=== PATIENT | female | born 1975 | race African-American/Black ===

== ENCOUNTER 2017-06-07 10:58 | Emergency (ER) | payer OTHER ==
[2017-06-07 11:09] VITALS: TEMP 98.3; BMI 33.8
[2017-06-07] MEDS ORDERED: ACETAMINOPHEN 1000 MG/100 ML VIAL (NON FORMULARY) IVPB ONE (12:39)
[2017-06-07] MEDS ORDERED: SODIUM CHLORIDE 1,000 ML IV STA ×2 (12:39→14:58)
--- NOTE | 2017-06-07 12:39 | PDOC ---
History of Present Illness - General Chief Complaint: Blood Sugar Problem Stated Complaint: BLOOD SUGAR PROBLEM, HEADACHE History Source: Patient Exam Limitations: No Limitations - History of Present Illness Initial Comments: 06/07/17 14:46 This 42-year-old female resents to the emergency room with complaints of elevated glucose levels that she measured at home as well as a headache. She is here with her 3 small children who are eating carbohydrates while waiting in the exam room. Patient appears well except that she is frustrated with her children. I explained that she should not be eating at this time. Labs have been obtained and she is noted to have an elevated glucose of over 300. She does take metformin and took it this morning. Past medical history is non-insulin diabetic on metformin Past History - Past Medical History Allergies/Adverse Reactions: Allergies Allergy/AdvReac Type Severity Reaction Status Date / Time latex Allergy Severe Swelling Verified 06/07/17 11:06 coconut Allergy Severe Hives Uncoded 06/07/17 11:06 Home Medications: Ambulatory Orders Humalog 16 units SQ AM 06/24/13 Humalog 18 units SQ HS 06/24/13 Humulin R - 14 units SQ HS 06/24/13 Humulin R - 38 units SQ AM 06/24/13 Azithromycin [Zithromax Z-KINGS (5 DAYS) -] 250 mg PO ASDIR #6 tablet 05/19/15 Anemia: No Asthma: No Cancer: No Cardiac Disorders: No CVA: No COPD: No CHF: No DVT: No Dementia: No Diabetes: Yes GI Disorders: No Disorders: No HTN: No Hypercholesterolemia: No Liver Disease: No Seizures: No Thyroid Disease: No - Surgical History Abdominal Surgery: Yes (2 abortions) Appendectomy: No Cardiac Surgery: No Cholecystectomy: No Lung Surgery: No Neurologic Surgery: No Orthopedic Surgery: No - Reproductive History (#): 6 Para: 1 Therapeutic (s) & number: Yes (2) Spontaneous : 1 - Suicide/Smoking/Psychosocial Hx Smoking Status: No Smoking History: Never smoked Have you smoked in the past 12 months: No Number of Cigarettes Smoked Daily: 0 Information on smoking cessation initiated: No 'Breaking Loose' booklet given: 04/06/13 Hx Alcohol Use: No Drug/Substance Use Hx: No Substance Use Type: None Hx Substance Use Treatment: No Review of Systems - Review of Systems Able to Perform ROS?: Yes Comments:: 06/07/17 14:47 General statement: Complaining of a headache and elevated glucoses Hematology: neg history of bleeding/blood thinners Skin: Neg for lesions, rash, bruising. HEENT: Neg symptoms Respiratory: Neg SOB or difficulty in breathing Cardiac: Neg chest pain GI: Neg pain, n/v : Neg problems on voiding MS: Neg for joint pain/stiffness, no edema Neuro: Neg for LOC, weakness, Endocrine: Neg for excess thirst/hunger, cold/heat intolerance, excess sweating positive with elevated glucose levels Allergies: + for allergies *Physical Exam - Vital Signs Last Vital Signs Temp Pulse Resp BP Pulse Ox 98.3 F 100 H 18 105/72 100 06/07/17 11:06 06/07/17 11:06 06/07/17 11:06 06/07/17 11:06 06/07/17 11:06 - Physical Exam Comments: 06/07/17 14:48 General Appearance: This well appearing 42-year-old female V/S: hemodynamically stable, afebrile Skin: WNL of pt's skin color, no signs of pallor, mottling, cyanosis Head:symmetrical Eyes: EOM's intact, PERRLA Ears: denies pain Nose: patent Throat: lips, teeth, gums, tongue, buccal mucos pink and moist Lungs: Chest symmetry equal. Cap refill <3 seconds. Lung sounds clear Cardiac: PMI at R 4MCL space, pos S1 and S2, regular rate. Abdomen: Soft, round, nontender : Not observed Muscularskeletal: Gait steady, ambulated in to ER, no edema +PMS Neuro: AAOx3, cognitively intact, speech clear and appropriate. ED Treatment Course - LABORATORY CBC & Chemistry Diagram: 06/07/17 13:15 06/07/17 13:15 Medical Decision Making - Medical Decision Making 06/07/17 14:43 Patient initially seen and examined. She is in the room with her 3 small kids eating multiple carbs although she states she is not eating them. She states that she's been having some headaches and Tylenol was given for this and she also says her glucoses have been high as she noted over the last 3-4 days. She was given some IV fluids. She takes metformin. She is noted to have a very mild positive acetone however her anion gap is negative. I've explained to her that she needs to drink a ton water as well as to avoid carbohydrates and glucose to keep her glucose down. She should schedule an appointment at [facility] today for her follow-up. Her repeat glucose is *DC/Admit/Observation/Transfer Diagnosis at time of Disposition: Hyperglycemia - Discharge Dispostion Disposition: HOME Condition at time of disposition: Good Admit: No - Referrals Referrals: Keyana Pike MD [Primary Care Provider] - - Patient Instructions Printed Discharge Instructions: DI for Hyperglycemia -- Adult Additional Instructions: Discharge instructions 1. Please follow up with your primary physician within the next few days and explain that you have been seen here in the Emergency Room. As you need to have a complete workup for your glucoses being so elevated. You need to call today to schedule that appointment. 2. If you experience any worsening of symptoms, please return to the ER 3. Walk daily 4. Drink plenty of water, stay away from carbohydrates and sugars. Take your medications daily as prescribed. - Post Discharge Activity Forms/Work/School Notes: Back to Work
[2017-06-07] MEDS ORDERED: ACETAMINOPHEN INJECTION 100 ML IVPB ONE (13:02)
[2017-06-07 13:28] LABS: BASO % 0.9 % (0-2.0); EOS % 2.1 % (0-4.5); HEMOGLOBIN 12.4 GM/dL (10.7-15.3); MCH 28.5 pg (25.7-33.7); MCHC 33.4 g/dl (32.0-36.0); MEAN CELL VOLUME 85.1 fl (80-96); MEAN PLT VOLUME 9.2 fl (7.5-11.1); MONO % 5.9 % (3.8-10.2); NEUT % 63.1 % (42.8-82.8); PLATELET COUNT 288 K/MM3 (134-434); RBC 4.35 M/mm3 (3.60-5.2); RDW 14.8 % (11.6-15.6); URINE APPEARANCE CLEAR; URINE BILIRUBIN NEGATIVE (<2.0 mg/dL); URINE BLOOD NEGATIVE (NEGATIVE); URINE COLOR STRAW; URINE GLUCOSE (UA) 3+ (NEGATIVE); URINE KETONE 1+ (NEGATIVE); URINE LEUK ESTERASE NEGATIVE (NEGATIVE); URINE NITRITE NEGATIVE (NEGATIVE); URINE PROTEIN NEGATIVE (NEGATIVE); URINE UROBILINOGEN NEGATIVE mg/dL (0.2-1.0); WHITE BLOOD COUNT 7.7 K/mm3 (4.0-10.0)
[2017-06-07 13:48] LABS: ALBUMIN 3.4 g/dl (3.4-5.0); ANION GAP 12 (8-16); BILIRUBIN,TOTAL 0.3 mg/dL (0.2-1.0); BLOOD UREA NITROGEN 10 mg/dL (7-18); CALCIUM 8.8 mg/dL (8.5-10.1); CHLORIDE 104 mmol/L (98-107); CO2 22 mmol/L (21-32); CREATININE 0.7 mg/dL (0.55-1.02); POTASSIUM 4.3 mmol/L (3.5-5.1); SGOT/AST 11 U/L (15-37); SGPT/ALT 16 U/L (12-78); SODIUM 138 mmol/L (136-145)
[2017-06-07 13:49] LABS: ALK PHOS 77 U/L (45-117)
[2017-06-07 13:51] LABS: GLUCOSE,RANDOM 346 mg/dL (74-106)
[2017-06-07] MEDS ORDERED: INSULIN REGULAR HUMAN 100 UNITS/ML *VIAL ONE (14:56)
[2017-06-07] MEDS ORDERED: INSULIN REGULAR HUMAN 100 UNITS/ML *VIAL IVPUSH ONE (14:59)
[2017-06-07 17:18] VITALS: BP 127/78; PULSE 92
== END 2017-06-07 17:19 | disposition home or self-care (01) ==
LOC: JER 10:58
PROC: 3E033NZ Introduction of Analgesics, Hypnotics, Sedatives into Peripheral Vein, Percutaneous Approach (ICD-10-PCS; principal; 2017-06-07)
PROC: 3E013VG Introduction of Insulin into Subcutaneous Tissue, Percutaneous Approach (ICD-10-PCS; 2017-06-07)
DX: E11.65 Type 2 diabetes mellitus with hyperglycemia (principal); Z79.84 Long term (current) use of oral hypoglycemic drugs
CPT/HCPCS: 36415; 80053; 81003; 82009; 82962; 85025; 96374; 96375; 99285-25; J0131; J7030

== ENCOUNTER 2018-03-30 19:23 | Inpatient (IN) | payer OTHER ==
[2018-03-30 19:35] VITALS: BMI 32.9
[2018-03-30] MEDS ORDERED: SODIUM CHLORIDE 1,000 ML IV STA (19:36)
--- NOTE | 2018-03-30 19:36 | PDOC ---
Rapid Medical Evaluation Medical Evaluation: Allergies Allergy/AdvReac Type Severity Reaction Status Date / Time latex Allergy Severe Swelling Verified 10/29/17 17:05 coconut Allergy Severe Hives Uncoded 10/29/17 17:05 I have performed a brief in-person evaluation of this patient. The patient presents with a chief complaint of: Hx of DM (on Humalog and another insulin but unable to recall name) C/O lightheadedness x 2 days; feeling weak and dehydrated; states her sugar has also been high; also having emesis and diarrhea; mentions having DKA in the past and this feels similar Pertinent physical exam findings: In NAD I have ordered the following: Labs, IVF, EKG The patient will proceed to the ED for further evaluation 03/30/18 19:32 03/30/18 19:49 Discharge Disposition - Referrals Referrals: Keyana Pike MD [Primary Care Provider] - - Patient Instructions - Post Discharge Activity
--- NOTE | 2018-03-30 20:14 | PDOC ---
History of Present Illness - General Chief Complaint: Blood Sugar Problem Stated Complaint: Blood Sugar Problem Time Seen by Provider: 03/30/18 19:32 - History of Present Illness Initial Comments: The patient is a 42F w/ history of T2DM and HLD who presents for evaluation of 2 days of malaise, lightheadedness, and generalized weakness. The patient reports that the last time she felt this way she was diagnosed as being in DKA. She reports that yesterday, she was standing in her kitchen when she became lightheaded and diaphoretic, she then had a syncopal episode. She awoke to her significant other waking her up and placing her on the couch. She also reports having several episodes of N/V/D yesterday. Today she reports continuing to feel not well, however, no further N/V/D. She reports taking her BG this AM and it being in the 300s. She repeated it this evening and the device read 'high.' Pt endorses associated polyuria/polydipsia. Denies fevers/chills, vision changes, chest pain, SOB, abdominal pain, or changes in sensation 03/30/18 20:22 Past History - Past Medical History Allergies/Adverse Reactions: Allergies Allergy/AdvReac Type Severity Reaction Status Date / Time latex Allergy Severe Swelling Verified 03/30/18 19:35 coconut Allergy Severe Hives Uncoded 03/30/18 19:35 Home Medications: Ambulatory Orders Gabapentin 300 mg PO TID 03/31/18 Insulin Glargine,Hum.rec.anlog [Basaglar Kwikpen U-100] 60 unit SQ HS 03/31/18 Insulin Sliding Scale [Novolog Vial Sliding Scale -] 0 units SQ AC 03/31/18 Meloxicam 15 mg PO BID 03/31/18 Anemia: No Asthma: No Cancer: No Cardiac Disorders: No CVA: No COPD: No CHF: No DVT: No Dementia: No Diabetes: Yes GI Disorders: No Disorders: No HTN: No Hypercholesterolemia: No Liver Disease: No Seizures: No Thyroid Disease: No - Surgical History Abdominal Surgery: Yes (2 abortions) Appendectomy: No Cardiac Surgery: No Cholecystectomy: No Lung Surgery: No Neurologic Surgery: No Orthopedic Surgery: No - Reproductive History (#): 6 Para: 1 Therapeutic (s) & number: Yes (2) Spontaneous : 1 - Immunization History Immunization Up to Date: No (UNKNOWN) - Suicide/Smoking/Psychosocial Hx Smoking Status: No Smoking History: Never smoked Have you smoked in the past 12 months: No Number of Cigarettes Smoked Daily: 0 'Breaking Loose' booklet given: 04/06/13 Hx Alcohol Use: No Drug/Substance Use Hx: No Substance Use Type: None Hx Substance Use Treatment: No Review of Systems - Review of Systems Able to Perform ROS?: Yes Comments:: GENERAL/CONSTITUTIONAL: No fever or chills. HEAD, EYES, EARS, NOSE AND THROAT: No change in vision. No ear pain or discharge. No sore throat CARDIOVASCULAR: No chest pain or shortness of breath RESPIRATORY: Denies cough, hemoptysis GASTROINTESTINAL: per HPI GENITOURINARY: +polyuria/polydipsia. No dysuria, frequency MUSCULOSKELETAL: No joint or muscle swelling or pain. No neck or back pain SKIN: No rash NEUROLOGIC: No headache, vertigo, or change in strength/sensation ENDOCRINE: No increased thirst. No abnormal weight change HEMATOLOGIC/LYMPHATIC: No anemia, easy bleeding, or history of blood clots ALLERGIC/IMMUNOLOGIC: No hives or skin allergy 03/30/18 20:13 Is the patient limited Greek proficient: No *Physical Exam - Vital Signs Last Vital Signs Temp Pulse Resp BP Pulse Ox 97.4 F L 104 H 18 119/78 99 03/30/18 19:32 03/30/18 19:32 03/30/18 19:32 03/30/18 19:32 03/30/18 19:32 - Physical Exam Comments: GENERAL: Awake, alert, and fully oriented, in no acute distress HEAD: No signs of trauma, normocephalic, atraumatic EYES: PERRLA, EOMI, sclera anicteric, conjunctiva clear ENT: Hearing grossly normal, nares patent, oropharynx clear without exudates. Moist mucosa LUNGS: No distress, speaks full sentences, clear to auscultation bilaterally HEART: Regular rate and rhythm, normal S1 and S2, no murmurs appreciated, peripheral pulses normal and equal bilaterally ABDOMEN: Soft, nontender, normoactive bowel sounds. No guarding, no rebound EXTREMITIES : Normal inspection, Normal range of motion, no edema. No clubbing or cyanosis NEUROLOGICAL: Cranial nerves II through XII grossly intact. Normal speech, no focal sensorimotor deficits SKIN: Warm, Dry, normal turgor, no rashes or lesions noted 03/30/18 20:13 Moderate Sedation - Procedure Monitoring Vital Signs: Procedure Monitoring Vital Signs Temperature 97.4 F L 03/30/18 19:32 Pulse Rate 104 H 03/30/18 19:32 Respiratory Rate 18 03/30/18 19:32 Blood Pressure 119/78 03/30/18 19:32 O2 Sat by Pulse Oximetry (%) 99 03/30/18 19:32 ED Treatment Course - LABORATORY CBC & Chemistry Diagram: 03/31/18 05:30 03/31/18 03:26 Medical Decision Making - Medical Decision Making The patient is a 42F w/ a history of T2DM and HLD who presents for evaluation of 2d of generalized weakness, syncopal episode, and lightheadedness that the patient associates w/ a previous episode of DKA. Ddx: DKA/hyperglycemia/HHS, syncopal episode, lyte disturbance, dehydration, steroid induced hyperglycemia ED Course CMP, BGM, CBC, serum acetone ECG, CXR IVF 03/30/18 20:14 BGM > 500 AG17 IVF, insulin gtt Zofran for nausea Plan for admission for DKA 03/30/18 20:44 Pt hypoglycemia to 40s Insulin gtt D/C'ed D50 Dispo: admit *DC/Admit/Observation/Transfer Diagnosis at time of Disposition: Nausea, Hyperglycemia DKA (diabetic ketoacidoses) Qualifiers: Diabetes mellitus type: type 2 Diabetes mellitus complication detail: without coma Qualified Code(s): E11.10 - Type 2 diabetes mellitus with ketoacidosis without coma - Discharge Dispostion Condition at time of disposition: Fair Decision to Admit order: Yes - Referrals - Patient Instructions - Post Discharge Activity
--- NOTE | 2018-03-30 20:39 | PDOC ---
Attending Attestation - HPI HPI: This patient is a 42 year old female with PMHx of diabetes type 2 ( on Humalog & Metformin), hyperlipidemia, who presents with 2 days of lightheadedness, and generalised weakness. Patient states that yesterday she felt fatigued and lightheaded and while in her kitchen she felt diaphoretic and had a syncopal episode. She also reports vomiting and diarrhea yesterday.Today she feels weak and general malaise. She took her sugar this morning and notes it was in the 300 s . In the ER her sugars were in the 500s. Patient states that her current symptoms feels like her DKA in the past. Patient notes URI 2 weeks ago and stopped her steroids a week ago. Denies any dysuria or diarrhea. - Physicial Exam PE: GENERAL: Awake, alert, and fully oriented, in no acute distress HEAD: No signs of trauma EYES: PERRLA, EOMI, sclera anicteric, conjunctiva clear ENT: Auricles normal inspection, hearing grossly normal, nares patent, oropharynx clear without exudates. Dry mucous membranes. LUNGS: Breath sounds equal, clear to auscultation bilaterally. No wheezes, and no crackles HEART: Tachycardic. Regular rhythm, normal S1 and S2, no murmurs, rubs or gallops ABDOMEN: Soft, nontender. No guarding, no rebound. No masses EXTREMITIES: Normal range of motion, no edema. No clubbing or cyanosis. No cords, erythema, or tenderness NEUROLOGICAL: Normal speech, normal gait SKIN: Warm, Dry, normal turgor, no rashes or lesions noted. <Arline Lincoln - Last Filed: 03/30/18 20:59> - Resident Resident Name: Kalyan Vo - ED Attending Attestation I have performed the following: I have examined & evaluated the patient, The case was reviewed & discussed with the resident, I agree w/resident's findings & plan, Exceptions are as noted - Critical Care Time Total Critical Care Time: 35 Critical Care Statement: The care of this patient involved high complexity decision making to prevent further life threatening deterioration of the patient 's condition and/or to evaluate & treat vital organ system(s) failure or risk of failure. - Medical Decision Making 03/30/18 20:39 I, Dr. Babs Bass, DO, attest that this document has been prepared under my direction and personally reviewed by me in its entirety. I further attest, that it accurately reflects all work, treatment, procedures and medical decision -making performed by me. 03/30/18 21:32 a/p: 42yo female with hx of DM who was recently on steroids for an URI with elevated glucose, wt loss, syncopal episode yesterday -pt states she woke up on the floor yesterday -pt admits to urinary freq and elevated glucose despite insulin and metformin use -neuro intact -no blood thinners -suspect orthostatic hypotension yesterday -will send labs, ekg, cxr -ua -will need IVF hydration -will most likely need admission 03/30/18 21:56 pt with low bicarb, elevated anion gap and elevated glucose- concern for DKA call placed to ICU insulin gtt ordered pt updated pt dehydrated on labs will admit to SYMPHONY acetone 3+ 03/30/18 22:01 case discussed with the ICU resident <Babs Bass - Last Filed: 03/30/18 22:01> Heart Score/ECG Review - ECG Intrepretation Comment:: 03/30/18 21:58 sinus a 75, nl axis, nl interval, no acute st/t wave findings <Babs Bass - Last Filed: 03/30/18 22:01>
[2018-03-30] MEDS ORDERED: SODIUM CHLORIDE 0.9% 500 ML INFUS.BAG IV ONE (20:45)
[2018-03-30 20:50] LABS: BASO % 0.9 % (0-2.0); EOS % 1.8 % (0-4.5); HEMOGLOBIN 13.9 GM/dL (10.7-15.3); LYMPH % 23.7 % (8-40); MCH 29.4 pg (25.7-33.7); MCHC 33.8 g/dl (32.0-36.0); MEAN PLT VOLUME 9.4 fl (7.5-11.1); MONO % 6.6 % (3.8-10.2); PLATELET COUNT 333 K/MM3 (134-434); RBC 4.72 M/mm3 (3.60-5.2); RDW 15.1 % (11.6-15.6); WHITE BLOOD COUNT 8.5 K/mm3 (4.0-10.0)
[2018-03-30 21:06] LABS: VENOUS PH 7.29 (7.32-7.42); VENOUS PO2 50.9 mmHg (28-48)
[2018-03-30 21:38] LABS: ALBUMIN 3.8 g/dl (3.4-5.0); ALK PHOS 78 U/L (45-117); ANION GAP 17 MMOL/L (8-16); BILIRUBIN,TOTAL 0.4 mg/dL (0.2-1); BLOOD UREA NITROGEN 16 mg/dL (7-18); CALCIUM 9.7 mg/dL (8.5-10.1); CHLORIDE 97 mmol/L (98-107); CO2 16 mmol/L (21-32); CREATININE 0.9 mg/dL (0.55-1.3); SGOT/AST 20 U/L (15-37); SGPT/ALT 16 U/L (13-61); SODIUM 130 mmol/L (136-145)
[2018-03-30 21:41] LABS: GLUCOSE,RANDOM 547 mg/dL (74-106)
[2018-03-30] MEDS ORDERED: SODIUM CHLORIDE 0.9%/KCL 20 MEQ/1,000 ML INFUS.BAG IV SCH (22:00)
[2018-03-30] MEDS ORDERED: INSULIN REGULAR 100 UNITS in SODIUM CHLORIDE 99 ML IVPB SCH (22:00)
[2018-03-30] MEDS ORDERED: SODIUM CHLORIDE 1,000 ML IV SCH (23:30)
--- NOTE | 2018-03-30 23:39 | HP ---
CHIEF COMPLAINT: weakness, malaise PCP: HISTORY OF PRESENT ILLNESS: The patient is a 42 yo f w/ PMH DM, HLD who comes into the ED c/o a 2 day history of malaise, lightheadedness and high sugars. The patien takes her sugars TID with meals at home and states that they nomrally run between 140- 300. Today, she took her sugar and one was in the 400's and the other one was higher than her meter detected. At this point, the patient decided to present for evaluation. The patient states that her symptoms were similar to the last time she went into DKA. Patient endorses compliance with her home medications and states that she recently had a cold which may be partly responsible for her ssx. Patient denies fever, chills, chest pain, SOB, dysuria, cough. ER course was notable for: (1) CO2 16, anion gap 17, venous pH 7.2 (2) 3+ acetone in blood (3) glucose 547 Recent Travel: none PAST MEDICAL HISTORY: see HPI PAST SURGICAL HISTORY: x2 Social History: Smoking: never Alcohol: denies Drugs: denies Family History: mother and brother w/ DM II Allergies latex Allergy (Severe, Verified 03/30/18 19:35) Swelling coconut Allergy (Severe, Uncoded 03/30/18 19:35) Hives ANAPHALAXIS HOME MEDICATIONS: Home Medications Medication Instructions Recorded Humalog 16 units SQ AM 06/24/13 Humalog 18 units SQ HS 06/24/13 Humulin R - 14 units SQ HS 06/24/13 Humulin R - 38 units SQ AM 06/24/13 Amoxicillin/Potassium Clav 1 each PO BID 7 Days #14 tablet 10/29/17 [Augmentin 875-125 Tablet] Ibuprofen 800 mg PO TID PRN #20 tablet 10/29/17 REVIEW OF SYSTEMS CONSTITUTIONAL: Absent: fever, chills, diaphoresis, weight change HEENT: Absent: rhinorrhea, nasal congestion, throat pain, throat swelling, difficulty swallowing, mouth swelling, ear pain, eye pain, visual changes CARDIOVASCULAR: Absent: chest pain, syncope, palpitations, irregular heart rate, lightheadedness , peripheral edema RESPIRATORY: Absent: cough, shortness of breath, dyspnea with exertion, orthopnea, wheezing, stridor, hemoptysis GASTROINTESTINAL: Absent: abdominal pain, abdominal distension, nausea, vomiting, diarrhea, constipation, melena, hematochezia GENITOURINARY: Absent: dysuria, frequency, urgency, hesitancy, hematuria, flank pain, genital pain MUSCULOSKELETAL: Absent: myalgia, arthralgia, joint swelling, back pain, neck pain SKIN: Absent: rash, itching, pallor HEMATOLOGIC/IMMUNOLOGIC: Absent: easy bleeding, easy bruising, lymphadenopathy, frequent infections ENDOCRINE: Absent: unexplained weight gain, unexplained weight loss, heat intolerance, cold intolerance NEUROLOGIC: Absent: headache, focal weakness or paresthesias, dizziness, unsteady gait, seizure, mental status changes, bladder or bowel incontinence PSYCHIATRIC: Absent: anxiety, depression, suicidal or homicidal ideation, hallucinations. PHYSICAL EXAMINATION Vital Signs - 24 hr 03/30/18 03/30/18 19:32 19:35 Temperature 97.4 F L Pulse Rate 104 H Respiratory 18 18 Rate Blood Pressure 119/78 O2 Sat by Pulse 99 99 Oximetry (%) GENERAL: Awake, alert, and fully oriented, in no acute distress. HEAD: Normal with no signs of trauma. EYES: Pupils equal, round and reactive to light, extraocular movements intact, sclera anicteric, conjunctiva clear. No lid lag. LUNGS: Breath sounds equal, clear to auscultation bilaterally. No wheezes, and no crackles. No accessory muscle use. HEART: Regular rate and rhythm, normal S1 and S2 without murmur, rub or gallop. ABDOMEN: Soft, nontender, not distended, normoactive bowel sounds, no guarding, no rebound, no masses. No hepatomegaly or splenomegaly. LOWER EXTREMITIES: 2+ pulses, warm, well-perfused. No calf tenderness. No peripheral edema. NEUROLOGICAL: Cranial nerves II-X intact. Normal speech. SKIN: Warm, dry, normal turgor, no rashes or lesions noted, normal capillary refill. Laboratory Results - last 24 hr 03/30/18 03/30/18 03/30/18 20:20 20:20 20:20 WBC 8.5 RBC 4.72 Hgb 13.9 Hct 41.0 MCV 87.0 MCH 29.4 MCHC 33.8 RDW 15.1 Plt Count 333 MPV 9.4 Absolute Neuts (auto) 5.7 Neutrophils % 67.0 Lymphocytes % 23.7 D Monocytes % 6.6 Eosinophils % 1.8 Basophils % 0.9 Nucleated RBC % 0 VBG pH 7.29 L POC VBG pCO2 34.0 L POC VBG pO2 50.9 H Mixed VBG HCO3 15.9 L Sodium 130 L Potassium 5.0 Chloride 97 L Carbon Dioxide 16 L Anion Gap 17 H BUN 16 Creatinine 0.9 Creat Clearance w eGFR > 60 Random Glucose 547 H* Calcium 9.7 Total Bilirubin 0.4 AST 20 ALT 16 Alkaline Phosphatase 78 Total Protein 8.0 Albumin 3.8 Acetone, Qual 03/30/18 20:20 WBC RBC Hgb Hct MCV MCH MCHC RDW Plt Count MPV Absolute Neuts (auto) Neutrophils % Lymphocytes % Monocytes % Eosinophils % Basophils % Nucleated RBC % VBG pH POC VBG pCO2 POC VBG pO2 Mixed VBG HCO3 Sodium Potassium Chloride Carbon Dioxide Anion Gap BUN Creatinine Creat Clearance w eGFR Random Glucose Calcium Total Bilirubin AST ALT Alkaline Phosphatase Total Protein Albumin Acetone, Qual Positive large 3+ H ASSESSMENT/PLAN: The patient is a 42 yo diabetic f who came into the ED c/o malaise and lethargy who as found to be in mild DKA #Mild DKA -venous pH 7.2 -CO2 16 -AG 17 -acetone in blood -s/p 2L NS in ED -RPT bmp STAT -insulin GTT -bmp q2h to monitor gap, glucose, K+ -BGM q4h -NS @ 125 -holding home DM meds for now #chronic back pain -holding home gabapentin for now #FEN -NS@125 -monitor lytes as above -NPO until gap closed #Prophy -Lovenox 40mg SQ daily #dispo -admit ICU Visit type - Emergency Visit Emergency Visit: Yes ED Registration Date: 03/30/18 Care time: The patient presented to the Emergency Department on the above date and was hospitalized for further evaluation of their emergent condition. - New Patient This patient is new to me today: Yes Date on this admission: 03/31/18 - Critical Care Critical Care patient: Yes Total Critical Care Time (in minutes): 60 Critical Care Statement: The care of this patient involved high complexity decision making to prevent further life threatening deterioration of the patient 's condition and/or to evaluate & treat vital organ system(s) failure or risk of failure.
[2018-03-31] MEDS ORDERED: ONDANSETRON 4 MG/2 ML VIAL IVPUSH ONE (00:55)
[2018-03-31] MEDS ORDERED: ONDANSETRON 4 MG/2 ML VIAL ONE (00:57)
--- NOTE | 2018-03-31 01:41 | PN ---
Teaching Attending Note Name of Resident: Hima Welch ATTENDING PHYSICIAN STATEMENT I saw and evaluated the patient. I reviewed the resident's note and discussed the case with the resident. I agree with the resident's findings and plan as documented. SUBJECTIVE: This is a 42 year old woman with a history of type 2 DM, hyperlipidemia, chronic back pain who comes to the ED complaining of lethargy, lightheadedness, and weakness for the last few days. She has had frequent urination and increased thirst. Yesterday, she had nausea, vomiting, and diarrhea. She also reports becoming lightheaded and diaphoretic while standing in the kitchen and then passing out. This morning, her blood glucose was in the 400s, and this evening, the meter said high. She denies fever, chills, abdominal pain, dysuria, cough. She says she has felt this way in the past when she has had DKA twice and both times were caused by infections. OBJECTIVE: Vital Signs Period Temp Pulse Resp BP Sys/Morales Pulse Ox Last 24 Hr 97.4 F 104 18-18 119/78 99-99 HEART: S1S2, tachycardic LUNGS: Clear ABDOMEN: Obese, soft, non-tender, non-distended, normal BS EXTREMITIES: No edema Laboratory Tests 03/30/18 03/30/18 03/30/18 20:20 20:20 20:20 WBC 8.5 RBC 4.72 Hgb 13.9 Hct 41.0 MCV 87.0 MCH 29.4 MCHC 33.8 RDW 15.1 Plt Count 333 MPV 9.4 Absolute Neuts (auto) 5.7 Neutrophils % 67.0 Lymphocytes % 23.7 D Monocytes % 6.6 Eosinophils % 1.8 Basophils % 0.9 Nucleated RBC % 0 VBG pH 7.29 L POC VBG pCO2 34.0 L POC VBG pO2 50.9 H Mixed VBG HCO3 15.9 L Sodium 130 L Potassium 5.0 Chloride 97 L Carbon Dioxide 16 L Anion Gap 17 H BUN 16 Creatinine 0.9 Creat Clearance w eGFR > 60 Random Glucose 547 H* Calcium 9.7 Total Bilirubin 0.4 AST 20 ALT 16 Alkaline Phosphatase 78 Total Protein 8.0 Albumin 3.8 Acetone, Qual 03/30/18 20:20 WBC RBC Hgb Hct MCV MCH MCHC RDW Plt Count MPV Absolute Neuts (auto) Neutrophils % Lymphocytes % Monocytes % Eosinophils % Basophils % Nucleated RBC % VBG pH POC VBG pCO2 POC VBG pO2 Mixed VBG HCO3 Sodium Potassium Chloride Carbon Dioxide Anion Gap BUN Creatinine Creat Clearance w eGFR Random Glucose Calcium Total Bilirubin AST ALT Alkaline Phosphatase Total Protein Albumin Acetone, Qual Positive large 3+ H Home Medications Medication Instructions Recorded Gabapentin 300 mg PO TID 03/31/18 Insulin Glargine,Hum.rec.anlog 60 unit SQ HS 03/31/18 [Basaglar Kwikpen U-100] Insulin Sliding Scale [Novolog 0 units SQ AC 03/31/18 Vial Sliding Scale -] Meloxicam 15 mg PO BID 03/31/18 ASSESSMENT AND PLAN: This is a 42 year old woman with a history of type 2 DM, hyperlipidemia, chronic back pain who presented to the ED with lethargy, lightheadedness, and weakness for the last few days. 1. DKA - Admit to ICU - NPO - Regular insulin IV drip - IV fluid - Monitor electrolytes, anion gap, serum acetone 2. Type 2 DM - Check HbA1c 3. Hyperlipidemia 4. Chronic back pain - On Neurontin, Mobic at home - hold until able to take oral meds 5. Obesity with BMI 32.9
[2018-03-31] MEDS ORDERED: DEXTROSE 50%-WATER 25 GM/50 ML DISP.SYRIN ONE (03:26)
[2018-03-31] MEDS ORDERED: DEXTROSE 50%-WATER - 25 GM/50 ML VIAL IVPUSH ONE (03:35)
[2018-03-31 04:29] LABS: ANION GAP 8 MMOL/L (8-16); BLOOD UREA NITROGEN 10 mg/dL (7-18); CALCIUM 7.8 mg/dL (8.5-10.1); CHLORIDE 114 mmol/L (98-107); CO2 19 mmol/L (21-32); CREATININE 0.6 mg/dL (0.55-1.3); GLUCOSE,RANDOM 200 mg/dL (74-106); POTASSIUM 3.2 mmol/L (3.5-5.1); SODIUM 141 mmol/L (136-145)
[2018-03-31] MEDS: POTASSIUM CHLORIDE 40 MEQ in SODIUM CHLORIDE 1,000 ML IVPB SCH ×2 (05:32→14:29)
[2018-03-31 05:41] LABS: URINE APPEARANCE CLEAR; URINE BILIRUBIN NEGATIVE (<2.0 mg/dL); URINE COLOR STRAW; URINE GLUCOSE (UA) 3+ (NEGATIVE); URINE KETONE 2+ (NEGATIVE); URINE LEUK ESTERASE NEGATIVE (NEGATIVE); URINE NITRITE NEGATIVE (NEGATIVE); URINE PROTEIN NEGATIVE (NEGATIVE); URINE UROBILINOGEN NEGATIVE mg/dL (0.2-1.0)
[2018-03-31 05:50] LABS: BASO % 0.5 % (0-2.0); EOS % 2.3 % (0-4.5); HEMATOCRIT 35.4 % (32.4-45.2); HEMOGLOBIN 12.1 GM/dL (10.7-15.3); LYMPH % 23.8 % (8-40); MCH 29.3 pg (25.7-33.7); MCHC 34.2 g/dl (32.0-36.0); MEAN CELL VOLUME 85.7 fl (80-96); MEAN PLT VOLUME 9.7 fl (7.5-11.1); MONO % 9.6 % (3.8-10.2); NEUT % 63.8 % (42.8-82.8); PLATELET COUNT 249 K/MM3 (134-434); RBC 4.13 M/mm3 (3.60-5.2); RDW 15.1 % (11.6-15.6); WHITE BLOOD COUNT 7.2 K/mm3 (4.0-10.0)
[2018-03-31 06:04] LABS: INR 0.97 (0.83-1.09); PROTHROMBIN TIME (PATIENT) 11.5 SEC (9.7-13.0)
[2018-03-31] MEDS ORDERED: INSULIN SLIDING SCALE (NOVOLOG) 1 VIAL SQ SCH (06:45)
[2018-03-31] MEDS ORDERED: INSULIN (NOVOLOG) ASPART 100 UNITS/ML 10ML VIAL ONE ×3 (07:20→21:40)
[2018-03-31 07:41] LABS: ANION GAP 10 MMOL/L (8-16); BLOOD UREA NITROGEN 10 mg/dL (7-18); CALCIUM 8.1 mg/dL (8.5-10.1); CHLORIDE 113 mmol/L (98-107); CO2 18 mmol/L (21-32); CREATININE 0.6 mg/dL (0.55-1.3); GLUCOSE,RANDOM 171 mg/dL (74-106); MAGNESIUM 1.7 mg/dL (1.8-2.4); PHOSPHOROUS 2.7 mg/dL (2.5-4.9); POTASSIUM 4.1 mmol/L (3.5-5.1); SODIUM 141 mmol/L (136-145)
[2018-03-31] MEDS ORDERED: MAGNESIUM SULF 50% (8.12 MEQ/2 ML-1 GM VIAL) IVPB ONE ×2 (09:07→09:15)
[2018-03-31] MEDS ORDERED: MUPIROCIN 2% TOPICAL OINTMENT FOR DECOLONIZATION NS SCH (10:00)
[2018-03-31] MEDS ORDERED: ENOXAPARIN NA (PORCINE) 40 MG/0.4 ML DISP.SYRIN SQ SCH (10:00)
[2018-03-31] MEDS ORDERED: MAGNESIUM 1GM/D5W - 2 GM/200 ML IVPB IVPB ONE (11:12)
[2018-03-31 11:13] LABS: ANION GAP 13 MMOL/L (8-16); BLOOD UREA NITROGEN 8 mg/dL (7-18); CALCIUM 7.8 mg/dL (8.5-10.1); CHLORIDE 115 mmol/L (98-107); CO2 16 mmol/L (21-32); CREATININE 0.5 mg/dL (0.55-1.3); GLUCOSE,RANDOM 169 mg/dL (74-106); POTASSIUM 4.2 mmol/L (3.5-5.1); SODIUM 143 mmol/L (136-145)
[2018-03-31] MEDS: INSULIN SLIDING SCALE (NOVOLOG) 1 VIAL SQ SCH ×4 (11:27→22:11)
--- NOTE | 2018-03-31 11:57 | EKG ---
Test Reason : Blood Pressure : / mmHG Vent. Rate : 075 BPM Atrial Rate : 075 BPM P-R Int : 146 ms QRS Dur : 078 ms QT Int : 386 ms P-R-T Axes : 061 023 035 degrees QTc Int : 431 ms NORMAL SINUS RHYTHM NORMAL ECG WHEN COMPARED WITH ECG OF 01-SEP-2017 14:29, NO SIGNIFICANT CHANGE WAS FOUND Confirmed by FORD PLATA MD ([id number]) on 03/31/2018 11:57:00 AM Referred By: Confirmed By:FORD PLATA MD
--- NOTE | 2018-03-31 12:17 | CONSULT ---
Consultation: ICU team Pt was down regulated to regular floor before admission to ICU , AG closed , AAOX3 , no need for ICU level at this time pt not on insulin drip any more. REQUESTING PROVIDER: Yuri CONSULT REQUEST: We have been asked to medically evaluate this patient for (DKA ). HISTORY OF PRESENT ILLNESS: REVIEW OF SYSTEMS: CONSTITUTIONAL: Absent: fever, chills, diaphoresis, generalized weakness, malaise, loss of appetite, weight change HEENT: Absent: rhinorrhea, nasal congestion, throat pain, throat swelling, difficulty swallowing, mouth swelling, ear pain, eye pain, visual changes CARDIOVASCULAR: Absent: chest pain, syncope, palpitations, irregular heart rate, lightheadedness , peripheral edema RESPIRATORY: Absent: cough, shortness of breath, dyspnea with exertion, orthopnea, wheezing, stridor, hemoptysis GASTROINTESTINAL: Absent: abdominal pain, abdominal distension, nausea, vomiting, diarrhea, constipation, melena, hematochezia GENITOURINARY: Absent: dysuria, frequency, urgency, hesitancy, hematuria, flank pain, genital pain MUSCULOSKELETAL: Absent: myalgia, arthralgia, joint swelling, back pain, neck pain SKIN: Absent: rash, itching, pallor HEMATOLOGIC/IMMUNOLOGIC: Absent: easy bleeding, easy bruising, lymphadenopathy, frequent infections ENDOCRINE: Absent: unexplained weight gain, unexplained weight loss, heat intolerance, cold intolerance NEUROLOGIC: Absent: headache, focal weakness or paresthesias, dizziness, unsteady gait, seizure, mental status changes, bladder or bowel incontinence PSYCHIATRIC: Absent: anxiety, depression, suicidal or homicidal ideation, hallucinations. PHYSICAL EXAMINATION Vital Signs - 24 hr 03/30/18 03/30/18 03/31/18 19:32 19:35 01:35 Temperature 97.4 F L Pulse Rate 104 H Pulse Rate [ Left Radial] Respiratory 18 18 Rate Blood Pressure 119/78 Blood Pressure [Left Arm] O2 Sat by Pulse 99 99 100 Oximetry (%) 03/31/18 03/31/18 03:15 05:00 Temperature Pulse Rate Pulse Rate [ 86 82 Left Radial] Respiratory 18 18 Rate Blood Pressure Blood Pressure 112/63 110/74 [Left Arm] O2 Sat by Pulse 98 100 Oximetry (%) GENERAL: Awake, alert, and fully oriented, in no acute distress. HEAD: Normal with no signs of trauma. EYES: Pupils equal, round and reactive to light, extraocular movements intact, sclera anicteric, conjunctiva clear. No lid lag. EARS, NOSE, THROAT: Ears normal, nares patent, oropharynx clear without exudates. Moist mucous membranes. NECK: Normal range of motion, supple without lymphadenopathy, JVD, or masses. LUNGS: Breath sounds equal, clear to auscultation bilaterally. No wheezes, and no crackles. No accessory muscle use. HEART: Regular rate and rhythm, normal S1 and S2 without murmur, rub or gallop. ABDOMEN: Soft, nontender, not distended, normoactive bowel sounds, no guarding, no rebound, no masses. No hepatomegaly or splenomegaly. MUSCULOSKELETAL: Normal range of motion at all joints. No bony deformities or tenderness. No CVA tenderness. UPPER EXTREMITIES: 2+ pulses, warm, well-perfused. No cyanosis. No clubbing. Cap refill <2 seconds. No peripheral edema. LOWER EXTREMITIES: 2+ pulses, warm, well-perfused. No calf tenderness. No peripheral edema. NEUROLOGICAL: Cranial nerves II-XII intact. Normal speech. Normal gait. PSYCHIATRIC: Cooperative. Good eye contact. Appropriate mood and affect. SKIN: Warm, dry, normal turgor, no rashes or lesions noted. Laboratory Results - last 24 hr 03/30/18 03/30/18 03/30/18 20:20 20:20 20:20 WBC 8.5 RBC 4.72 Hgb 13.9 Hct 41.0 MCV 87.0 MCH 29.4 MCHC 33.8 RDW 15.1 Plt Count 333 MPV 9.4 Absolute Neuts (auto) 5.7 Neutrophils % 67.0 Lymphocytes % 23.7 D Monocytes % 6.6 Eosinophils % 1.8 Basophils % 0.9 Nucleated RBC % 0 PT with INR INR PTT (Actin FS) VBG pH 7.29 L POC VBG pCO2 34.0 L POC VBG pO2 50.9 H Mixed VBG HCO3 15.9 L Sodium 130 L Potassium 5.0 Chloride 97 L Carbon Dioxide 16 L Anion Gap 17 H BUN 16 Creatinine 0.9 Creat Clearance w eGFR > 60 POC Glucometer Random Glucose 547 H* Hemoglobin A1c % Calcium 9.7 Phosphorus Magnesium Total Bilirubin 0.4 AST 20 ALT 16 Alkaline Phosphatase 78 Total Protein 8.0 Albumin 3.8 Urine Color Urine Appearance Urine pH Ur Specific [place] Urine Protein Urine Glucose (UA) Urine Ketones Urine Blood Urine Nitrite Urine Bilirubin Urine Urobilinogen Ur Leukocyte Esterase Acetone, Qual 03/30/18 03/30/18 03/31/18 20:20 20:41 03:23 WBC RBC Hgb Hct MCV MCH MCHC RDW Plt Count MPV Absolute Neuts (auto) Neutrophils % Lymphocytes % Monocytes % Eosinophils % Basophils % Nucleated RBC % PT with INR INR PTT (Actin FS) VBG pH POC VBG pCO2 POC VBG pO2 Mixed VBG HCO3 Sodium Potassium Chloride Carbon Dioxide Anion Gap BUN Creatinine Creat Clearance w eGFR POC Glucometer > 400 < 50 Random Glucose Hemoglobin A1c % Calcium Phosphorus Magnesium Total Bilirubin AST ALT Alkaline Phosphatase Total Protein Albumin Urine Color Urine Appearance Urine pH Ur Specific [place] Urine Protein Urine Glucose (UA) Urine Ketones Urine Blood Urine Nitrite Urine Bilirubin Urine Urobilinogen Ur Leukocyte Esterase Acetone, Qual Positive large 3+ H 03/31/18 03/31/18 03/31/18 03:26 04:40 05:30 WBC RBC Hgb Hct MCV MCH MCHC RDW Plt Count MPV Absolute Neuts (auto) Neutrophils % Lymphocytes % Monocytes % Eosinophils % Basophils % Nucleated RBC % PT with INR INR PTT (Actin FS) VBG pH POC VBG pCO2 POC VBG pO2 Mixed VBG HCO3 Sodium 141 141 Potassium 3.2 L 4.1 Chloride 114 H 113 H Carbon Dioxide 19 L 18 L Anion Gap 8 10 BUN 10 10 Creatinine 0.6 0.6 Creat Clearance w eGFR > 60 > 60 POC Glucometer Random Glucose 200 H 171 H Hemoglobin A1c % Calcium 7.8 L 8.1 L Phosphorus 2.7 Magnesium 1.7 L Total Bilirubin AST ALT Alkaline Phosphatase Total Protein Albumin Urine Color Straw Urine Appearance Clear Urine pH 5.0 Ur Specific [place] 1.014 Urine Protein Negative Urine Glucose (UA) 3+ H Urine Ketones 2+ H Urine Blood Negative Urine Nitrite Negative Urine Bilirubin Negative Urine Urobilinogen Negative Ur Leukocyte Esterase Negative Acetone, Qual 03/31/18 03/31/18 03/31/18 05:30 05:30 05:30 WBC 7.2 RBC 4.13 Hgb 12.1 Hct 35.4 MCV 85.7 MCH 29.3 MCHC 34.2 RDW 15.1 Plt Count 249 D MPV 9.7 Absolute Neuts (auto) 4.6 Neutrophils % 63.8 Lymphocytes % 23.8 Monocytes % 9.6 Eosinophils % 2.3 Basophils % 0.5 Nucleated RBC % 0 PT with INR 11.50 INR 0.97 PTT (Actin FS) 19.0 L VBG pH POC VBG pCO2 POC VBG pO2 Mixed VBG HCO3 Sodium Potassium Chloride Carbon Dioxide Anion Gap BUN Creatinine Creat Clearance w eGFR POC Glucometer Random Glucose Hemoglobin A1c % 13.0 H Calcium Phosphorus Magnesium Total Bilirubin AST ALT Alkaline Phosphatase Total Protein Albumin Urine Color Urine Appearance Urine pH Ur Specific [place] Urine Protein Urine Glucose (UA) Urine Ketones Urine Blood Urine Nitrite Urine Bilirubin Urine Urobilinogen Ur Leukocyte Esterase Acetone, Qual 03/31/18 03/31/18 03/31/18 07:06 10:08 11:24 WBC RBC Hgb Hct MCV MCH MCHC RDW Plt Count MPV Absolute Neuts (auto) Neutrophils % Lymphocytes % Monocytes % Eosinophils % Basophils % Nucleated RBC % PT with INR INR PTT (Actin FS) VBG pH POC VBG pCO2 POC VBG pO2 Mixed VBG HCO3 Sodium 143 Potassium 4.2 Chloride 115 H Carbon Dioxide 16 L Anion Gap 13 BUN 8 Creatinine 0.5 L Creat Clearance w eGFR > 60 POC Glucometer 190.23549 137.99947 Random Glucose 169 H Hemoglobin A1c % Calcium 7.8 L Phosphorus Magnesium Total Bilirubin AST ALT Alkaline Phosphatase Total Protein Albumin Urine Color Urine Appearance Urine pH Ur Specific [place] Urine Protein Urine Glucose (UA) Urine Ketones Urine Blood Urine Nitrite Urine Bilirubin Urine Urobilinogen Ur Leukocyte Esterase Acetone, Qual Active Medications Generic Name Dose Route Start Last Admin Trade Name Freq PRN Reason Stop Dose Admin Chlorhexidine Gluconate 1 applic 03/31/18 22:00 Hibiclens For Decolonization - TP [facility] Enoxaparin Sodium 40 mg 03/31/18 10:00 03/31/18 11:27 Lovenox - SQ 40 mg DAILY MARCELO Administration Potassium Chloride 40 meq/ 1,020 mls @ 125 mls/hr 03/31/18 05:30 03/31/18 05: 32 Sodium Chloride IVPB 125 mls/hr Q8H [facility] Administration Insulin Aspart 1 vial 03/31/18 08:28 03/31/18 11:27 Novolog Vial Sliding Scale - SQ Not Given Q4HPO [facility] Protocol Insulin Detemir 30 units 03/31/18 22:00 Levemir Vial SQ [facility] Mupirocin 1 applic 03/31/18 10:00 Bactroban Ointment (For Decolonization) - NS 04/05/18 09:59 BID [facility] ASSESSMENT/PLAN: transferred to regular floor , not icu candidate Dispo: We will continue to follow the patient. Thank you for this consultative opportunity. Visit type - Emergency Visit Emergency Visit: Yes ED Registration Date: 03/30/18 Care time: The patient presented to the Emergency Department on the above date and was hospitalized for further evaluation of their emergent condition. - New Patient This patient is new to me today: Yes Date on this admission: 03/31/18 - Critical Care Critical Care patient: Yes Total Critical Care Time (in minutes): 30 Critical Care Statement: The care of this patient involved high complexity decision making to prevent further life threatening deterioration of the patient 's condition and/or to evaluate & treat vital organ system(s) failure or risk of failure.
[2018-03-31] MEDS ORDERED: HEMOQUE TEST 1 EACH EACH ONE ×2 (14:24→14:27)
--- NOTE | 2018-03-31 16:36 | CONSULT ---
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 The patient reports that the last time she felt this way she was diagnosed as being in DKA. She reports coming down with a cold last week and feeling unwell since then. Two days ago she was standing in her kitchen when she became lightheaded and diaphoretic, found herself on the floor. Doesn't remember how it happened but she didn't notice any injury or pain after the event. Pt slept through the night but still felt unwell so came to ED yesterday. FS at home yesterday was "Hi". Blood sugar in ED was 547 with CO2 of 16 and A Gap of 17. Pt was treated with IV insulin with improvement in A gap and blood sugar. 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 Pt currently feels better. Last dose of Basaglar 2 days ago. - History Source History Provided By: Patient, Medical Record - Past Medical History ...LMP: 01/04/13 Endocrine: Yes: Diabetes Mellitus - Alcohol/Substance Use Hx Alcohol Use: No - Smoking History Smoking history: Never smoked Have you smoked in the past 12 months: No Aproximately how many cigarettes per day: 0 Home Medications - Allergies Allergies/Adverse Reactions: Allergies Allergy/AdvReac Type Severity Reaction Status Date / Time latex Allergy Severe Swelling Verified 03/30/18 19:35 coconut Allergy Severe Hives Uncoded 03/30/18 19:35 - Home Medications Home Medications: Ambulatory Orders Atorvastatin Ca [Lipitor] 10 mg PO HS 03/31/18 Gabapentin 300 mg PO BID 03/31/18 Insulin Glargine,Hum.rec.anlog [Basaglar Kwikpen U-100] 60 unit SQ HS 03/31/18 Insulin Sliding Scale [Novolog Vial Sliding Scale -] 0 units SQ AC 03/31/18 metFORMIN HCL [Metformin HCl] 500 mg PO BID 03/31/18 Family Disease History - Family Disease History Family Disease History: Diabetes: Mother (HTN), Other: Father (HTN), Mother Review of Systems - Review of Systems Constitutional: reports: Malaise, Weakness Eyes: reports: No Symptoms HENT: reports: No Symptoms Neck: reports: No Symptoms Cardiovascular: reports: No Symptoms Respiratory: reports: No Symptoms Gastrointestinal: reports: No Symptoms Genitourinary: reports: Other (Polyuria, polydipsia) Integumentary: reports: No Symptoms Neurological: reports: No Symptoms Endocrine: reports: Increased Thirst Physical Exam Vital Signs: Vital Signs Temperature 98.4 F 03/31/18 13:00 Pulse Rate 74 03/31/18 13:00 Respiratory Rate 16 03/31/18 13:00 Blood Pressure 102/80 03/31/18 13:00 O2 Sat by Pulse Oximetry (%) 100 03/31/18 05:00 Constitutional: Yes: No Distress, Calm Eyes: Yes: Conjunctiva Clear, EOM Intact HENT: Yes: Atraumatic, Normocephalic Neck: Yes: Supple, Trachea Midline Cardiovascular: Yes: Regular Rate and Rhythm Respiratory: Yes: Regular, CTA Bilaterally Gastrointestinal: Yes: Normal Bowel Sounds, Soft Musculoskeletal: Yes: WNL Extremities: Yes: WNL Edema: No Neurological: Yes: Alert, Oriented Labs: CBC, BMP 03/31/18 05:30 03/31/18 10:08 Assessment/Plan AP; Ketosis prone DM DKA Off Insulin drip Levemir 25 units stat CMP stat Novolog Coverage Q 4 hrs If CMP shows complete resolution of DKA with normalization of CO2 and A Gap, may change BGM to QACHS and 3 AM with novolog coverage Premeals. Will need to restart Insulin drip is acidosis worsens. Nutrition consult
--- NOTE | 2018-03-31 17:11 | PN ---
Physical Exam: SUBJECTIVE: Patient seen and examined at bedside this morning. Patient is a 42 year old female with past medical history of IDDM and HLD, presented to the ED after a 3-day history of fatigue, polyuria and anorexia. Patient took her blood sugar, which usually runs between 200-300, and at that time was noted to be >400 , and another that was higher than her meter detected. Patient is known to be non-compliant with her medications and follow-ups with Dr. Puga. Overnight Patient was started on insulin drip and IV fluids. On repeat fingerstick, glu was 48. D50 was given, and insulin ggt discontinued. Patient was resumed on her SQ insulin. This morning, patient reports fatigue, but denies polyuria, anorexia, fever, chills, headache, chest pain, sOB, abdominal pain, diarrhea. OBJECTIVE: Vital Signs Period Temp Pulse Resp BP Sys/Morales Pulse Ox Last 24 Hr 97.4 F-98.4 F 74-104 16-18 102-119/63-80 98-100 GENERAL: The patient is awake, alert, and fully oriented, in no acute distress. HEAD: Normal with no signs of trauma. EYES: PERRLA, EOMI, sclera anicteric, conjunctiva clear. ENT: Ears normal, nares patent, oropharynx clear without exudates, moist mucous membranes. NECK: Trachea midline, full range of motion, supple. +thyroid nodule LUNGS: Breath sounds equal, clear to auscultation bilaterally. HEART: Regular rate and rhythm, S1, S2 without murmur, rub or gallop. ABDOMEN: Soft, nontender, nondistended, normoactive bowel sounds. EXTREMITIES: 2+ pulses, warm, well-perfused, no edema. NEUROLOGICAL: Cranial nerves II through XII grossly intact. Normal speech, gait not observed. PSYCH: Normal mood, normal affect. SKIN: Warm, dry, normal turgor, no rashes or lesions noted Laboratory Results - last 24 hr 03/30/18 03/30/18 03/30/18 20:20 20:20 20:20 WBC 8.5 RBC 4.72 Hgb 13.9 Hct 41.0 MCV 87.0 MCH 29.4 MCHC 33.8 RDW 15.1 Plt Count 333 MPV 9.4 Absolute Neuts (auto) 5.7 Neutrophils % 67.0 Lymphocytes % 23.7 D Monocytes % 6.6 Eosinophils % 1.8 Basophils % 0.9 Nucleated RBC % 0 PT with INR INR PTT (Actin FS) VBG pH 7.29 L POC VBG pCO2 34.0 L POC VBG pO2 50.9 H Mixed VBG HCO3 15.9 L Sodium 130 L Potassium 5.0 Chloride 97 L Carbon Dioxide 16 L Anion Gap 17 H BUN 16 Creatinine 0.9 Creat Clearance w eGFR > 60 POC Glucometer Random Glucose 547 H* Hemoglobin A1c % Calcium 9.7 Phosphorus Magnesium Total Bilirubin 0.4 AST 20 ALT 16 Alkaline Phosphatase 78 Total Protein 8.0 Albumin 3.8 Urine Color Urine Appearance Urine pH Ur Specific [place] Urine Protein Urine Glucose (UA) Urine Ketones Urine Blood Urine Nitrite Urine Bilirubin Urine Urobilinogen Ur Leukocyte Esterase Acetone, Qual 03/30/18 03/30/18 03/31/18 20:20 20:41 03:23 WBC RBC Hgb Hct MCV MCH MCHC RDW Plt Count MPV Absolute Neuts (auto) Neutrophils % Lymphocytes % Monocytes % Eosinophils % Basophils % Nucleated RBC % PT with INR INR PTT (Actin FS) VBG pH POC VBG pCO2 POC VBG pO2 Mixed VBG HCO3 Sodium Potassium Chloride Carbon Dioxide Anion Gap BUN Creatinine Creat Clearance w eGFR POC Glucometer > 400 < 50 Random Glucose Hemoglobin A1c % Calcium Phosphorus Magnesium Total Bilirubin AST ALT Alkaline Phosphatase Total Protein Albumin Urine Color Urine Appearance Urine pH Ur Specific [place] Urine Protein Urine Glucose (UA) Urine Ketones Urine Blood Urine Nitrite Urine Bilirubin Urine Urobilinogen Ur Leukocyte Esterase Acetone, Qual Positive large 3+ H 03/31/18 03/31/18 03/31/18 03:26 04:40 05:30 WBC RBC Hgb Hct MCV MCH MCHC RDW Plt Count MPV Absolute Neuts (auto) Neutrophils % Lymphocytes % Monocytes % Eosinophils % Basophils % Nucleated RBC % PT with INR INR PTT (Actin FS) VBG pH POC VBG pCO2 POC VBG pO2 Mixed VBG HCO3 Sodium 141 141 Potassium 3.2 L 4.1 Chloride 114 H 113 H Carbon Dioxide 19 L 18 L Anion Gap 8 10 BUN 10 10 Creatinine 0.6 0.6 Creat Clearance w eGFR > 60 > 60 POC Glucometer Random Glucose 200 H 171 H Hemoglobin A1c % Calcium 7.8 L 8.1 L Phosphorus 2.7 Magnesium 1.7 L Total Bilirubin AST ALT Alkaline Phosphatase Total Protein Albumin Urine Color Straw Urine Appearance Clear Urine pH 5.0 Ur Specific [place] 1.014 Urine Protein Negative Urine Glucose (UA) 3+ H Urine Ketones 2+ H Urine Blood Negative Urine Nitrite Negative Urine Bilirubin Negative Urine Urobilinogen Negative Ur Leukocyte Esterase Negative Acetone, Qual 03/31/18 03/31/18 03/31/18 05:30 05:30 05:30 WBC 7.2 RBC 4.13 Hgb 12.1 Hct 35.4 MCV 85.7 MCH 29.3 MCHC 34.2 RDW 15.1 Plt Count 249 D MPV 9.7 Absolute Neuts (auto) 4.6 Neutrophils % 63.8 Lymphocytes % 23.8 Monocytes % 9.6 Eosinophils % 2.3 Basophils % 0.5 Nucleated RBC % 0 PT with INR 11.50 INR 0.97 PTT (Actin FS) 19.0 L VBG pH POC VBG pCO2 POC VBG pO2 Mixed VBG HCO3 Sodium Potassium Chloride Carbon Dioxide Anion Gap BUN Creatinine Creat Clearance w eGFR POC Glucometer Random Glucose Hemoglobin A1c % 13.0 H Calcium Phosphorus Magnesium Total Bilirubin AST ALT Alkaline Phosphatase Total Protein Albumin Urine Color Urine Appearance Urine pH Ur Specific [place] Urine Protein Urine Glucose (UA) Urine Ketones Urine Blood Urine Nitrite Urine Bilirubin Urine Urobilinogen Ur Leukocyte Esterase Acetone, Qual 03/31/18 03/31/18 03/31/18 07:06 10:08 11:24 WBC RBC Hgb Hct MCV MCH MCHC RDW Plt Count MPV Absolute Neuts (auto) Neutrophils % Lymphocytes % Monocytes % Eosinophils % Basophils % Nucleated RBC % PT with INR INR PTT (Actin FS) VBG pH POC VBG pCO2 POC VBG pO2 Mixed VBG HCO3 Sodium 143 Potassium 4.2 Chloride 115 H Carbon Dioxide 16 L Anion Gap 13 BUN 8 Creatinine 0.5 L Creat Clearance w eGFR > 60 POC Glucometer 190.60798 137.82402 Random Glucose 169 H Hemoglobin A1c % Calcium 7.8 L Phosphorus Magnesium Total Bilirubin AST ALT Alkaline Phosphatase Total Protein Albumin Urine Color Urine Appearance Urine pH Ur Specific [place] Urine Protein Urine Glucose (UA) Urine Ketones Urine Blood Urine Nitrite Urine Bilirubin Urine Urobilinogen Ur Leukocyte Esterase Acetone, Qual 03/31/18 15:01 WBC RBC Hgb Hct MCV MCH MCHC RDW Plt Count MPV Absolute Neuts (auto) Neutrophils % Lymphocytes % Monocytes % Eosinophils % Basophils % Nucleated RBC % PT with INR INR PTT (Actin FS) VBG pH POC VBG pCO2 POC VBG pO2 Mixed VBG HCO3 Sodium Potassium Chloride Carbon Dioxide Anion Gap BUN Creatinine Creat Clearance w eGFR POC Glucometer [phone] Random Glucose Hemoglobin A1c % Calcium Phosphorus Magnesium Total Bilirubin AST ALT Alkaline Phosphatase Total Protein Albumin Urine Color Urine Appearance Urine pH Ur Specific [place] Urine Protein Urine Glucose (UA) Urine Ketones Urine Blood Urine Nitrite Urine Bilirubin Urine Urobilinogen Ur Leukocyte Esterase Acetone, Qual Active Medications Generic Name Dose Route Start Last Admin Trade Name Freq PRN Reason Stop Dose Admin Chlorhexidine Gluconate 1 applic 03/31/18 22:00 Hibiclens For Decolonization - TP HS [facility] Enoxaparin Sodium 40 mg 03/31/18 10:00 03/31/18 11:27 Lovenox - SQ 40 mg DAILY [facility] Administration Potassium Chloride 40 meq/ 1,020 mls @ 125 mls/hr 03/31/18 05:30 03/31/18 14: 29 Sodium Chloride IVPB Not Given Q8H [facility] Insulin Aspart 1 vial 03/31/18 08:28 03/31/18 15:02 Novolog Vial Sliding Scale - SQ 8 unit Q4HPO [facility] Administration Protocol Insulin Detemir 30 units 03/31/18 22:00 Levemir Vial SQ HS [facility] Mupirocin 1 applic 03/31/18 10:00 Bactroban Ointment (For Decolonization) - NS 04/05/18 09:59 BID [facility] ASSESSMENT/PLAN: Patient is a 42 year old female with past medical history of IDDM and HLD, presented to the ED after a 3-day history of fatigue, polyuria and anorexia. #HAGMA likely 2/2 DKA: resolved -On admission: VBG 7.29/34/50.9/15.9; anion gap 17 -Acetone +3, UA: glu 3+, ketones 2+ -s/p insulin ggt -latest glu : 169 -Insulin levemir and sliding scale initiated -BGM q4h -Diabetic diet resumed. -Endocrinology (Dr. Puga) consulted. #Hypokalemia -K 3.2 s/p KCL 40meq -repeat K 4.1 -will continue to monitor #Chronic low back pain 2/2 herniated lumbar disc -On Gabapentin 300mg BID #Hyperlipidemia -Continue home Lipitor 10mg daily. #FEN -IV NS @125cc/hr -hypokalemia, hypomagnesemia, repleted -routine bmp monitoring -diabetic diet #Prophylaxis -Lovenox 40mg sq daily #Disposition -full code -med-surg Visit type - Emergency Visit Emergency Visit: Yes ED Registration Date: 03/30/18 Care time: The patient presented to the Emergency Department on the above date and was hospitalized for further evaluation of their emergent condition. - New Patient This patient is new to me today: Yes Date on this admission: 03/31/18 - Critical Care Critical Care patient: No
[2018-03-31] MEDS ORDERED: INSULIN (LEVEMIR) 100 UNITS/ML UNITS SQ ONE (18:38)
--- NOTE | 2018-03-31 18:42 | PN ---
Teaching Attending Note Name of Resident: Priyanka Gallegos ATTENDING PHYSICIAN STATEMENT I saw and evaluated the patient. I reviewed the resident's note and discussed the case with the resident. I agree with the resident's findings and plan as documented. SUBJECTIVE: Patient is comfortable, with no acute distress, anion gap is closed now. OBJECTIVE: Vital Signs Temperature 98.1 F 03/31/18 18:41 Pulse Rate 71 03/31/18 18:41 Respiratory Rate 15 03/31/18 18:41 Blood Pressure 114/76 03/31/18 18:41 O2 Sat by Pulse Oximetry (%) 100 03/31/18 09:00 GENERAL: The patient is awake, alert, and fully oriented, in no acute distress. HEAD: Normal with no signs of trauma. EYES: PERRLA, EOMI, sclera anicteric, conjunctiva clear. ENT: Ears normal, oropharynx clear without exudates, moist mucous membranes. NECK: Trachea midline, full range of motion, supple. positive for thyroid nodule LUNGS: Breath sounds equal, clear to auscultation bilaterally. HEART: Regular rate and rhythm, S1, S2 without murmur, rub or gallop. ABDOMEN: Soft, nontender, nondistended, normoactive bowel sounds. EXTREMITIES: 2+ pulses, warm, well-perfused, no edema. NEUROLOGICAL: Cranial nerves II through XII grossly intact. Normal speech. PSYCH: Normal mood, normal affect. SKIN: Warm, dry, normal turgor, no rashes or lesions noted CBCD WBC 7.2 K/mm3 (4.0-10.0) 03/31/18 05:30 RBC 4.13 M/mm3 (3.60-5.2) 03/31/18 05:30 Hgb 12.1 GM/dL (10.7-15.3) 03/31/18 05:30 Hct 35.4 % (32.4-45.2) 03/31/18 05:30 MCV 85.7 fl (80-96) 03/31/18 05:30 MCHC 34.2 g/dl (32.0-36.0) 03/31/18 05:30 RDW 15.1 % (11.6-15.6) 03/31/18 05:30 Plt Count 249 K/MM3 (134-434) D 03/31/18 05:30 MPV 9.7 fl (7.5-11.1) 03/31/18 05:30 CMP Sodium 143 mmol/L (136-145) 03/31/18 10:08 Potassium 4.2 mmol/L (3.5-5.1) 03/31/18 10:08 Chloride 115 mmol/L (98-107) H 03/31/18 10:08 Carbon Dioxide 16 mmol/L (21-32) L 03/31/18 10:08 Anion Gap 13 MMOL/L (8-16) 03/31/18 10:08 BUN 8 mg/dL (7-18) 03/31/18 10:08 Creatinine 0.5 mg/dL (0.55-1.3) L 03/31/18 10:08 Creat Clearance w eGFR > 60 (>60) 03/31/18 10:08 Random Glucose 169 mg/dL (74-106) H 03/31/18 10:08 Calcium 7.8 mg/dL (8.5-10.1) L 03/31/18 10:08 Total Bilirubin 0.4 mg/dL (0.2-1) 03/30/18 20:20 AST 20 U/L (15-37) 03/30/18 20:20 ALT 16 U/L (13-61) 03/30/18 20:20 Alkaline Phosphatase 78 U/L (45-117) 03/30/18 20:20 Total Protein 8.0 g/dl (6.4-8.2) 03/30/18 20:20 Albumin 3.8 g/dl (3.4-5.0) 03/30/18 20:20 Current Medications Generic Name Dose Route Start Last Admin Trade Name Freq PRN Reason Stop Dose Admin Chlorhexidine Gluconate 1 applic 03/31/18 22:00 Hibiclens For Decolonization - TP HS [facility] Enoxaparin Sodium 40 mg 03/31/18 10:00 03/31/18 11:27 Lovenox - SQ 40 mg DAILY [facility] Administration Insulin Aspart 1 vial 03/31/18 08:28 03/31/18 18:23 Novolog Vial Sliding Scale - SQ 2 unit Q4HPO [facility] Administration Protocol Insulin Detemir 25 units 03/31/18 18:38 Levemir Vial SQ 03/31/18 18:39 ONCE ONE Mupirocin 1 applic 03/31/18 10:00 Bactroban Ointment (For Decolonization) - NS 04/05/18 09:59 BID [facility] Home Medications Medication Instructions Recorded Atorvastatin Ca [Lipitor] 10 mg PO HS 03/31/18 Gabapentin 300 mg PO BID 03/31/18 Insulin Glargine,Hum.rec.anlog 60 unit SQ HS 03/31/18 [Basaglar Kwikpen U-100] Insulin Sliding Scale [Novolog 0 units SQ AC 03/31/18 Vial Sliding Scale -] metFORMIN HCL [Metformin HCl] 500 mg PO BID 03/31/18 ASSESSMENT AND PLAN: This is a 42 year old woman with a history of type 2 DM, hyperlipidemia, chronic back pain who presented to the ED with lethargy, lightheadedness, and weakness for the last few days. # Acute DKA , improved , on Levemir, and SS, HbA1c is 13 # Hyperlipidemia continue lipitor. # Chronic back pain on Neurontin, dc mobic for now. # Obesity with BMI 32.9, weight loss and nutrition consult DVT Px: Lovenox
[2018-03-31] MEDS ORDERED: CHLORHEXIDINE GLUCONATE 4% CLEANSER FOR DECOLONIZATION TP SCH (22:00)
[2018-03-31] MEDS ORDERED: INSULIN (LEVEMIR) 100 UNITS/ML UNITS SQ SCH (22:00)
[2018-04-01] MEDS: INSULIN SLIDING SCALE (NOVOLOG) 1 VIAL SQ SCH ×2 (02:04→06:03)
[2018-04-01] MEDS ORDERED: INSULIN (LEVEMIR) 100 UNITS/ML UNITS SQ ONE (06:32)
[2018-04-01] MEDS ORDERED: INSULIN (NOVOLOG) ASPART 100 UNITS/ML 10ML VIAL ONE (06:32)
[2018-04-01 07:45] LABS: HEMATOCRIT 36.1 % (32.4-45.2); HEMOGLOBIN 12.4 GM/dL (10.7-15.3); MCH 29.3 pg (25.7-33.7); MCHC 34.3 g/dl (32.0-36.0); MEAN CELL VOLUME 85.4 fl (80-96); MEAN PLT VOLUME 9.2 fl (7.5-11.1); PLATELET COUNT 266 K/MM3 (134-434); RBC 4.23 M/mm3 (3.60-5.2); RDW 14.9 % (11.6-15.6); WHITE BLOOD COUNT 6.2 K/mm3 (4.0-10.0)
--- NOTE | 2018-04-01 08:10 | PN ---
Teaching Attending Note Name of Resident: Priyanka Gallegos ATTENDING PHYSICIAN STATEMENT I saw and evaluated the patient. I reviewed the resident's note and discussed the case with the resident. I agree with the resident's findings and plan as documented. SUBJECTIVE Patient is feeling better with no acute distress. wants to go home. OBJECTIVE: Vital Signs Temperature 98.6 F 04/01/18 02:00 Pulse Rate 85 04/01/18 02:00 Respiratory Rate 18 04/01/18 02:00 Blood Pressure 111/71 04/01/18 02:00 O2 Sat by Pulse Oximetry (%) 100 03/31/18 21:00 GENERAL: The patient is awake, alert, and fully oriented, in no acute distress. HEAD: Normal with no signs of trauma. EYES: PERRLA, EOMI, sclera anicteric, conjunctiva clear. ENT: Ears normal, oropharynx clear without exudates, moist mucous membranes. NECK: Trachea midline, full range of motion, supple. positive for thyroid nodule LUNGS: Breath sounds equal, clear to auscultation bilaterally. HEART: Regular rate and rhythm, S1, S2 without murmur, rub or gallop. ABDOMEN: Soft, nontender, nondistended, normoactive bowel sounds. EXTREMITIES: 2+ pulses, warm, well-perfused, no edema. NEUROLOGICAL: Cranial nerves II through XII grossly intact. Normal speech. PSYCH: Normal mood, normal affect. SKIN: Warm, dry, normal turgor, no rashes or lesions noted CBCD WBC 6.2 K/mm3 (4.0-10.0) 04/01/18 06:30 RBC 4.23 M/mm3 (3.60-5.2) 04/01/18 06:30 Hgb 12.4 GM/dL (10.7-15.3) 04/01/18 06:30 Hct 36.1 % (32.4-45.2) 04/01/18 06:30 MCV 85.4 fl (80-96) 04/01/18 06:30 MCHC 34.3 g/dl (32.0-36.0) 04/01/18 06:30 RDW 14.9 % (11.6-15.6) 04/01/18 06:30 Plt Count 266 K/MM3 (134-434) 04/01/18 06:30 MPV 9.2 fl (7.5-11.1) 04/01/18 06:30 CMP Sodium 143 mmol/L (136-145) 03/31/18 10:08 Potassium 4.2 mmol/L (3.5-5.1) 03/31/18 10:08 Chloride 115 mmol/L (98-107) H 03/31/18 10:08 Carbon Dioxide 16 mmol/L (21-32) L 03/31/18 10:08 Anion Gap 13 MMOL/L (8-16) 03/31/18 10:08 BUN 8 mg/dL (7-18) 03/31/18 10:08 Creatinine 0.5 mg/dL (0.55-1.3) L 03/31/18 10:08 Creat Clearance w eGFR > 60 (>60) 03/31/18 10:08 Random Glucose 169 mg/dL (74-106) H 03/31/18 10:08 Calcium 7.8 mg/dL (8.5-10.1) L 03/31/18 10:08 Total Bilirubin 0.4 mg/dL (0.2-1) 03/30/18 20:20 AST 20 U/L (15-37) 03/30/18 20:20 ALT 16 U/L (13-61) 03/30/18 20:20 Alkaline Phosphatase 78 U/L (45-117) 03/30/18 20:20 Total Protein 8.0 g/dl (6.4-8.2) 03/30/18 20:20 Albumin 3.8 g/dl (3.4-5.0) 03/30/18 20:20 Current Medications Generic Name Dose Route Start Last Admin Trade Name Freq PRN Reason Stop Dose Admin Enoxaparin Sodium 40 mg 03/31/18 10:00 03/31/18 11:27 Lovenox - SQ 40 mg DAILY [facility] Administration Insulin Aspart 1 vial 03/31/18 08:28 04/01/18 06:03 Novolog Vial Sliding Scale - SQ Not Given Q4HPO [facility] Protocol Home Medications Medication Instructions Recorded Atorvastatin Ca [Lipitor] 10 mg PO HS 03/31/18 Gabapentin 300 mg PO BID 03/31/18 Insulin Glargine,Hum.rec.anlog 60 unit SQ HS 03/31/18 [Basaglar Kwikpen U-100] Insulin Sliding Scale [Novolog 0 units SQ AC 03/31/18 Vial Sliding Scale -] metFORMIN HCL [Metformin HCl] 500 mg PO BID 03/31/18 ASSESSMENT AND PLAN: This is a 42 year old woman with a history of type 2 DM, hyperlipidemia, chronic back pain who presented to the ED with lethargy, lightheadedness, and weakness for the last few days. # Acute DKA resolved , discussed with eliza Mcnamara to discharge the patient on Levemir, and SS, HbA1c is 13, patient will follow up with automotive engineering technician within a week period. Continue home Metformin # Hyperlipidemia continue lipitor. # Chronic back pain on Neurontin, dc mobic # Obesity with BMI 32.9, weight loss and nutrition consult discharge patient home.
[2018-04-01 08:22] LABS: ANION GAP 12 MMOL/L (8-16); BLOOD UREA NITROGEN 11 mg/dL (7-18); CALCIUM 8.5 mg/dL (8.5-10.1); CHLORIDE 111 mmol/L (98-107); CO2 20 mmol/L (21-32); CREATININE 0.5 mg/dL (0.55-1.3); GLUCOSE,RANDOM 146 mg/dL (74-106); MAGNESIUM 1.8 mg/dL (1.8-2.4); PHOSPHOROUS 2.8 mg/dL (2.5-4.9); POTASSIUM 3.7 mmol/L (3.5-5.1); SODIUM 143 mmol/L (136-145)
[2018-04-01] MEDS ORDERED: ATORVASTATIN CA 10 MG TABLET (FP) PO SCH (08:45)
[2018-04-01] MEDS ORDERED: POTASSIUM CHLORIDE TABS 20 MEQ TABLET.ER (FP) PO ONE (08:49)
[2018-04-01] MEDS ORDERED: MAGNESIUM OXIDE 400 MG TABLET (FP) PO ONE (08:49)
[2018-04-01] MEDS ORDERED: ENOXAPARIN NA (PORCINE) 40 MG/0.4 ML DISP.SYRIN SQ SCH (10:00)
[2018-04-01] MEDS ORDERED: INSULIN SLIDING SCALE (NOVOLOG) 1 VIAL SQ SCH ×2 (10:00→11:00)
--- NOTE | 2018-04-01 12:51 | DS ---
Physical Exam: SUBJECTIVE: Patient seen and examined at bedside this morning. No acute events overnight. Patient has no new complaints. OBJECTIVE: Vital Signs Period Temp Pulse Resp BP Sys/Morales Pulse Ox Last 24 Hr 98.1 F-98.6 F 71-85 15-18 102-114/71-80 100 PHYSICAL EXAM GENERAL: The patient is awake, alert, and fully oriented, in no acute distress. HEAD: Normal with no signs of trauma. EYES: PERRLA, EOMI, sclera anicteric, conjunctiva clear. ENT: Ears normal, nares patent, oropharynx clear without exudates, moist mucous membranes. NECK: Trachea midline, full range of motion, supple. +thyroid nodule LUNGS: Breath sounds equal, clear to auscultation bilaterally. HEART: Regular rate and rhythm, S1, S2 without murmur, rub or gallop. ABDOMEN: Soft, nontender, nondistended, normoactive bowel sounds. EXTREMITIES: 2+ pulses, warm, well-perfused, no edema. NEUROLOGICAL: Cranial nerves II through XII grossly intact. Normal speech, gait not observed. PSYCH: Normal mood, normal affect. SKIN: Warm, dry, normal turgor, no rashes or lesions noted LABS Laboratory Results - last 24 hr 03/31/18 03/31/18 04/01/18 15:01 18:11 06:30 WBC 6.2 RBC 4.23 Hgb 12.4 Hct 36.1 MCV 85.4 MCH 29.3 MCHC 34.3 RDW 14.9 Plt Count 266 MPV 9.2 Sodium Potassium Chloride Carbon Dioxide Anion Gap BUN Creatinine Creat Clearance w eGFR POC Glucometer 322.70110 162.30219 Random Glucose Calcium Phosphorus Magnesium 04/01/18 06:30 WBC RBC Hgb Hct MCV MCH MCHC RDW Plt Count MPV Sodium 143 Potassium 3.7 Chloride 111 H Carbon Dioxide 20 L Anion Gap 12 BUN 11 Creatinine 0.5 L Creat Clearance w eGFR > 60 POC Glucometer Random Glucose 146 H Calcium 8.5 Phosphorus 2.8 Magnesium 1.8 HOSPITAL COURSE: Date of Admission:03/30/18 Date of Discharge: 04/01/18 Patient is a 42 year old female with past medical history of IDDM and HLD, presented to the ED after a 3-day history of fatigue, polyuria and anorexia. At the ED, patient was noted to have high anion gap with metabolic acidosis. Acetone was positive in the blood. Patient was started on insulin drip and IV fluids. A few hours after, repeat bmp showed blood sugar of 48, and anion gap closed. Electrolytes were repleted. Insulin drip discontinued and patient was given D50. Guardian Ad Litem consulted. Patient was then started on SQ insulin and remained stable with anion gap remaining closed and electrolytes within normal limits throughout her hospital stay. Patient was discharged with instructions to follow-up with PCP and Guardian Ad Litem and to continue her home Insulin. Minutes to complete discharge: 40 Discharge Summary Reason For Visit: Blood Sugar Problem Current Active Problems DKA (diabetic ketoacidoses) (Acute) Hyperglycemia (Acute) Hyperlipidemia (Chronic) Insulin dependent diabetes mellitus (Chronic) Condition: Improved - Instructions Diet, Activity, Other Instructions: Your visit You were admitted to the hospital because you felt weak and tired. You were diagnosed to have Diabetic Ketoacidosis, a complication of your diabetes. You were treated with insulin and IV fluids, to which you responded well. Medications -Continue your home medications as prescribed. -It is important that you should be compliant in taking your insulin as instructed otherwise you can have multiple episodes of diabetic ketoacidosis.It is important that you are compliant with your insulin and follow up with Dr. Odonnell on a regular basis. Follow-up -Please follow-up with your primary care doctor (Dr. Dale) within 1 week. -Please follow-up with your Guardian Ad Litem (Dr. Puga) within 1 week. Additional info Call 911 or go to the ED if with any worsening fatigue, fever, chills, headache , dizziness, chest pain, shortness of breath, palpitations, abdominal pain, diarrhea or any new concerns noted. Referrals: Bernadine Puga MD [Staff Physician] - 1 Week Keyana Pike MD [Primary Care Provider] - 1 Week Disposition: HOME - Home Medications Comprehensive Discharge Medication List: Ambulatory Orders Atorvastatin Ca [Lipitor] 10 mg PO HS 03/31/18 Gabapentin 300 mg PO BID 03/31/18 Insulin Sliding Scale [Novolog Vial Sliding Scale -] 0 units SQ AC 03/31/18 metFORMIN HCL [Metformin HCl] 500 mg PO BID 03/31/18 Insulin Glargine,Hum.rec.anlog [Basaglar Kwikpen U-100] 40 unit SQ HS #100 insuln.pen 04/01/18 This patient is new to me today: No Emergency Visit: Yes ED Registration Date: 03/30/18 Care time: The patient presented to the Emergency Department on the above date and was hospitalized for further evaluation of their emergent condition. Critical Care patient: No - Discharge Referral Referred to [facility] Med [facility] No
[2018-04-01 13:46] VITALS: BP 115/71; PULSE 86; TEMP 98.9
== END 2018-04-01 14:21 | disposition home or self-care (01) | DRG 420 ==
LOC: JER 19:23 → JERBED 21:53 → J6S 03-31 19:04
PROVIDERS: ADMIT Internal Medicine; ATTEND Internal Medicine
DX: E11.10 Type 2 diabetes mellitus with ketoacidosis without coma (principal); E87.8 Other disorders of electrolyte and fluid balance, not elsewhere classified; E83.42 Hypomagnesemia; Z91.14 Patient's other noncompliance with medication regimen; E87.6 Hypokalemia; E86.0 Dehydration; Z79.4 Long term (current) use of insulin; Z79.84 Long term (current) use of oral hypoglycemic drugs; E78.5 Hyperlipidemia, unspecified; M54.9 Dorsalgia, unspecified; E66.9 Obesity, unspecified; Z68.32 Body mass index [BMI] 32.0-32.9, adult; R00.0 Tachycardia, unspecified
CPT/HCPCS: 36415; 71045-TC-FY; 80048; 80053; 81003; 82009; 82803; 82962; 83036; 83735; 84100; 85025; 85027; 85610; 85730; 87086; 93005; 93010; 99285-25; J7030

== ENCOUNTER 2018-09-22 13:46 | Emergency (ER) | payer OTHER ==
--- NOTE | 2018-09-22 14:28 | PDOC ---
History of Present Illness - General Stated Complaint: INFECTION Time Seen by Provider: 09/22/18 14:25 History Source: Patient Exam Limitations: No Limitations - History of Present Illness Initial Comments: 43 yo F PMH IDDM, depression, breast reduction surgery, p/w lumbar back pain and drainage in s/o lumbar disk repair on September 13. Surgery done by Dr. Barnett at [place]. Says that the repaired areas has been trickling for the last two days, however today there was much more blood and there is also new pain. Patient reports tingling and loss of sensation along the left lateral gluteus down to the left lateral three toes, and always feeling cold within this distribution. Patient also complains of urge incontinence since the surgery, and was not able to make it to the bathroom two nights ago. She has not been very mobile since her surgery, and has chills that are worse at night. Further endorses SOB and lightheadedness with exertion. Denies CP, SOB at rest, N/V, constipation/diarrhea, or fevers. 09/22/18 14:27 09/22/18 15:16 Past History - Past Medical History Allergies/Adverse Reactions: Allergies Allergy/AdvReac Type Severity Reaction Status Date / Time latex Allergy Severe Swelling Verified 03/30/18 19:35 coconut Allergy Severe Hives Uncoded 03/30/18 19:35 Home Medications: Ambulatory Orders Atorvastatin Ca [Lipitor] 10 mg PO HS 03/31/18 Gabapentin 300 mg PO BID 03/31/18 Insulin Sliding Scale [Novolog Vial Sliding Scale -] 0 units SQ AC 03/31/18 metFORMIN HCL [Metformin HCl] 500 mg PO BID 03/31/18 Insulin Glargine,Hum.rec.anlog [Basaglar Kwikpen U-100] 40 unit SQ HS #100 insuln.pen 04/01/18 Anemia: No Asthma: No Cancer: No Cardiac Disorders: No CVA: No COPD: No CHF: No DVT: No Dementia: No Diabetes: Yes GI Disorders: No Disorders: No HTN: No Hypercholesterolemia: No Liver Disease: No Seizures: No Thyroid Disease: No - Surgical History Abdominal Surgery: Yes (2 abortions) Appendectomy: No Cardiac Surgery: No Cholecystectomy: No Lung Surgery: No Neurologic Surgery: No Orthopedic Surgery: No - Reproductive History (#): 6 Para: 1 Therapeutic (s) & number: Yes (2) Spontaneous : 1 - Immunization History Immunization Up to Date: No (UNKNOWN) - Suicide/Smoking/Psychosocial Hx Smoking Status: No Smoking History: Never smoked Have you smoked in the past 12 months: No Number of Cigarettes Smoked Daily: 0 'Breaking Loose' booklet given: 04/06/13 Hx Alcohol Use: No Drug/Substance Use Hx: No Substance Use Type: None Hx Substance Use Treatment: No Review of Systems - Review of Systems Able to Perform ROS?: Yes Is the patient limited [place] proficient: No Constitutional: Yes: See HPI, Weakness. No: Diaphoresis, Fever HEENTM: No: Eye Pain, Blurred Vision, Recent change in vision, Double Vision, Ear Pain, Nose Pain, Tinnitus, Hearing Loss, Throat Pain, Mouth Pain, Difficulty Swallowing Respiratory: Yes: SOB with Exertion. No: Cough, SOB at Rest, Stridor, Wheezing Cardiac (ROS): Yes: Lightheadedness (with exertion). No: Chest Pain ABD/GI: No: Constipated, Nausea, Vomiting : Yes: Incontinence (urge) Musculoskeletal: Yes: Back Pain (L1 down to coccyx along spine) Neurological: Yes: Numbness (along left lateral gluteus through lateral three toes), Weakness (L foot plantar flexion). No: Headache *Physical Exam - Physical Exam Comments: Wound in lumbar spine with dried blood, non-erythematous, tender, leaking CSF 09/22/18 14:58 General Appearance: Yes: Nourished, Appropriately Dressed HEENT: positive: EOMI, SHERICE, Normal ENT Inspection, Normal Voice, Pharynx Normal Neck: positive: Trachea midline, Normal Thyroid, Supple Respiratory/Chest: positive: Lungs Clear, Normal Breath Sounds. negative: Crackles, Rales, Rhonchi, Stridor, Wheezing Cardiovascular: positive: Regular Rhythm, Regular Rate Gastrointestinal/Abdominal: positive: Normal Bowel Sounds, Soft. negative: Tenderness Musculoskeletal: positive: Vertebral Tenderness (on L1 down to the coccyx). negative: CVA Tenderness Extremity: positive: Normal Inspection Integumentary: positive: Normal Color, Dry, Cold Neurologic: positive: ground crewman II-XII NML intact, Fully Oriented, Alert, Normal Mood/ Affect, Normal Response, Sensory Deficit (decreased sensation on L lateral gluteus down to three lateral toes), Finger to Nose (intact). negative: Motor Strength 5/5 (4/5 on L plantar flexion), Facial Droop, Confused, Disoriented ED Treatment Course - LABORATORY CBC & Chemistry Diagram: 09/22/18 15:40 09/22/18 15:40 Medical Decision Making - Medical Decision Making Patient concerning for cauda equina vs ACS vs PE vs epidural abscess. CBC CMP EKG trops PT/INR PTT CTpe CT lumbar spine dry 6 mg morphine 09/22/18 15:08 CBC and UA reviewed, WBC 7.6 and Hemoglobin 11.3, UA with 3+ glucose but not leuk esterase or nitrites 09/22/18 16:35 CMP reviewed, Glu 237, Cr 0.7. 09/22/18 16:[address] Estrada 09/22/18 19:04 Attempted to call patient's fiancee at [phone], but went to message. 09/22/18 19:[address] Downey at [facility], they will take the transfer post CTA and CT lumbar spine reads. 09/22/18 19:110 *DC/Admit/Observation/Transfer Diagnosis at time of Disposition: Post-operative complication Qualifiers: Surgical complication system/body Area: musculoskeletal system Surgical complication type: unspecified Procedure type: musculoskeletal Qualified Code(s) : M96.89 - Other intraoperative and postprocedural complications and disorders of the musculoskeletal system - Discharge Dispostion Disposition: TRANSFER ACUTE CARE/OTHER HOSP Condition at time of disposition: Improved - Referrals Referrals: Keyana Pike MD [Staff Physician] - - Patient Instructions - Post Discharge Activity
[2018-09-22 14:38] VITALS: BMI 39.3
[2018-09-22] MEDS ORDERED: morphine CARPU-JECT 4 MG/1 ML DISP.SYRIN IVPUSH ONE (15:13)
[2018-09-22] MEDS ORDERED: MORPHINE SULFATE 2 MG/ML VIAL ONE (15:47)
[2018-09-22] MEDS ORDERED: SODIUM CHLORIDE 1,000 ML IV STA (15:57)
--- NOTE | 2018-09-22 15:58 | PDOC ---
Documentation entered by Ish Templeton SCRIBE, acting as scribe for Angel Banks MD. Angel Banks MD: This documentation has been prepared by the Jareth hein Daniel, SCRIBE, under my direction and personally reviewed by me in its entirety. I confirm that the documentation accurately reflects all work, treatment, procedures, and medical decision making performed by me. Attending Attestation - Resident Resident Name: RodriguezLuisajmia - ED Attending Attestation I have performed the following: I have examined & evaluated the patient, The case was reviewed & discussed with the resident, I agree w/resident's findings & plan, Exceptions are as noted - HPI HPI: 09/22/18 15:15 The patient is a 43 year old female with a past medical history of diabetes and L-spine discectomy (done on 09/13/[address] Barnett at [place]) here today for evaluation of lower back pain and bleeding from her surgical site. The patient reports that since her surgery on 09/13 she has had leaking from the surgical site which has increased in severity. Pt also reports LLE weakness and numbness , as well as urinary incontinence, all of which have been present since the surgery. Pt denies any worsening of the weakness or numbness but states that the pain has been increasing, prompting her to come to the ED today. Pt is also endorsing occasional SOB and BURKS. Denies any chest pain. Denies F/C. Patient denies headache, lightheadedness. Denies nausea, vomiting, diarrhea, abdominal pain. Allergies: latex coconut PCP: Margi Dhaliwal - Physicial Exam PE: 09/22/18 15:54 "GENERAL: Awake, alert, and fully oriented, in no acute distress. HEAD: No signs of trauma EYES: PERRLA, EOMI, sclera anicteric, conjunctiva clear ENT: Auricles normal inspection, hearing grossly normal, nares patent, oropharynx clear without exudates. Moist mucosa NECK: Nontender, no stepoffs, Normal ROM, supple, no lymphadenopathy, JVD, or masses LUNGS: Breath sounds equal, clear to auscultation bilaterally. No wheezes, and no crackles HEART: Regular rate and rhythm, normal S1 and S2, no murmurs, rubs or gallops ABDOMEN: Soft, nontender, normoactive bowel sounds. No guarding, no rebound. No masses EXTREMITIES: Normal range of motion, no edema. No clubbing or cyanosis. No cords, erythema, or tenderness NEUROLOGICAL: Cranial nerves II through XII intact. 4/5 strength and sensation in LLE, 5/5 strength and sensation in all other extremities, Normal speech, normal gait, normal cerebellar function SKIN: Warm, Dry, normal turgor, no rashes or lesions noted. BACK: + lumbar surgical incision leaking blood and CSF - Critical Care Time Total Critical Care Time: 60 Critical Care Statement: The care of this patient involved high complexity decision making to prevent further life threatening deterioration of the patient 's condition and/or to evaluate & treat vital organ system(s) failure or risk of failure. - Medical Decision Making 09/22/18 15:55 43 F with recent lumbar spine surgery, now with LLE weakness/numbness and urinary incontinence. None of these symptoms are acute, have been present since surgery. However, pt reporting increased pain. Will need emergent MRI and nsgy eval. However, pt also complaining of SOB and BURKS. Given recent surgery, will need to r/o PE. - Labs, trop - CTA chest to r/o PE - CT L spine - Transfer to [facility] for neurosurgery eval
[2018-09-22 16:30] LABS: PH,URINE 5.5 (5.0-8.0); URINE APPEARANCE CLEAR; URINE BILIRUBIN NEGATIVE (NEGATIVE); URINE COLOR YELLOW; URINE GLUCOSE (UA) 3+ (NEGATIVE); URINE KETONE 1+ (NEGATIVE); URINE LEUK ESTERASE NEGATIVE (NEGATIVE); URINE NITRITE NEGATIVE (NEGATIVE); URINE PROTEIN NEGATIVE (NEGATIVE); URINE UROBILINOGEN 0.2 mg/dL (0.2-1.0)
[2018-09-22 16:34] LABS: BASO % 0.5 % (0-2.0); EOS % 2.1 % (0-4.5); HEMATOCRIT 33.6 % (32.4-45.2); HEMOGLOBIN 11.3 GM/dL (10.7-15.3); LYMPH % 35.8 % (8-40); MCH 26.8 pg (25.7-33.7); MCHC 33.5 g/dl (32.0-36.0); MEAN PLT VOLUME 8.2 fl (7.5-11.1); MONO % 5.2 % (3.8-10.2); NEUT % 56.4 % (42.8-82.8); PLATELET COUNT 455 K/MM3 (134-434); RBC 4.19 M/mm3 (3.60-5.2); RDW 15.9 % (11.6-15.6); WHITE BLOOD COUNT 7.6 K/mm3 (4.0-10.0)
[2018-09-22 16:37] LABS: ALBUMIN 3.2 g/dl (3.4-5.0); ALK PHOS 74 U/L (45-117); ANION GAP 7 MMOL/L (8-16); BILIRUBIN,TOTAL 0.2 mg/dL (0.2-1); CALCIUM 9.2 mg/dL (8.5-10.1); CHLORIDE 106 mmol/L (98-107); CO2 28 mmol/L (21-32); CREATININE 0.7 mg/dL (0.55-1.3); GLUCOSE,RANDOM 237 mg/dL (74-106); POTASSIUM 4.5 mmol/L (3.5-5.1); SGOT/AST 9 U/L (15-37); SGPT/ALT 17 U/L (13-61); SODIUM 141 mmol/L (136-145); TOT PROT 7.3 g/dl (6.4-8.2)
[2018-09-22 16:43] LABS: PROTHROMBIN TIME (PATIENT) 11.8 SEC (9.7-13.0)
[2018-09-22 19:05] VITALS: BP 145/87; PULSE 89
--- NOTE | 2018-09-22 19:21 | PDOC ---
*Physical Exam - Vital Signs Last Vital Signs Temp Pulse Resp BP Pulse Ox 98 F 89 18 145/87 100 09/22/18 19:05 09/22/18 19:05 09/22/18 19:05 09/22/18 19:05 09/22/18 19:05 ED Treatment Course - LABORATORY CBC & Chemistry Diagram: 09/22/18 15:40 09/22/18 15:40 - ADDITIONAL ORDERS Additional order review: Laboratory Results 09/22/18 09/22/18 09/22/18 15:40 15:40 15:40 PT with INR INR PTT (Actin FS) 33.4 Sodium Potassium Chloride Carbon Dioxide Anion Gap BUN Creatinine Est GFR (CKD-EPI)AfAm Est GFR (CKD-EPI)NonAf Random Glucose Calcium Total Bilirubin AST ALT Alkaline Phosphatase Creatine Kinase Troponin I Total Protein Albumin Serum , Qual Negative Urine Color Yellow Urine Appearance Clear Urine pH 5.5 Ur Specific Harrison 1.023 Urine Protein Negative Urine Glucose (UA) 3+ H Urine Ketones 1+ H Urine Blood Negative Urine Nitrite Negative Urine Bilirubin Negative Urine Urobilinogen 0.2 Ur Leukocyte Esterase Negative 09/22/18 09/22/18 15:40 15:40 PT with INR 11.80 INR 1.00 PTT (Actin FS) Sodium 141 Potassium 4.5 Chloride 106 Carbon Dioxide 28 Anion Gap 7 L BUN 8.0 Creatinine 0.7 Est GFR (CKD-EPI)AfAm 122.99 Est GFR (CKD-EPI)NonAf 106.12 Random Glucose 237 H Calcium 9.2 Total Bilirubin 0.2 AST 9 L ALT 17 Alkaline Phosphatase 74 Creatine Kinase 102 Troponin I < 0.02 Total Protein 7.3 Albumin 3.2 L Serum , Qual Urine Color Urine Appearance Urine pH Ur Specific Harrison Urine Protein Urine Glucose (UA) Urine Ketones Urine Blood Urine Nitrite Urine Bilirubin Urine Urobilinogen Ur Leukocyte Esterase 09/22/18 15:40 RBC 4.19 MCV 80.0 MCHC 33.5 RDW 15.9 H MPV 8.2 D Neutrophils % 56.4 Lymphocytes % 35.8 D Monocytes % 5.2 Eosinophils % 2.1 Basophils % 0.5 - Medications Given in the ED: ED Medications Discontinued Medications Generic Name Dose Route Start Last Admin Trade Name Freq PRN Reason Stop Dose Admin Sodium Chloride 1,000 mls @ 1,000 mls/hr 09/22/18 15:57 09/22/18 15:58 Normal Saline - IV 09/22/18 16:56 1,000 mls/hr ASDIR STA Administration Morphine Sulfate 6 mg 09/22/18 15:13 09/22/18 15:58 Morphine Injection - IVPUSH 09/22/18 15:14 6 mg ONCE ONE Administration Medical Decision Making - Medical Decision Making 09/22/18 19:20 signed out by day team 43yo F with PMH of DM and L-spine discectomy (done on 09/13/[address] Barnett at [place]) presenting for lower back pain and bleeding from her surgical site. Since surgery on 09/13 she has had leaking from the surgical site which has increased in severity. Pt also reports LLE weakness and numbness, as well as urinary incontinence, all of which have been present since the surgery. Pt denies any worsening of the weakness or numbness but states that the pain has been increasing, prompting her to come to the ED today. Pt is also endorsing occasional SOB and BURKS. Pending CT L spine and CTA to r/o PE [facility] called, waiting for call back for acceptance of transfer. 09/22/18 20:13 CTA negative for pe. Pt accepted by Dr. Downey at [facility] *DC/Admit/Observation/Transfer Diagnosis at time of Disposition: Post-operative complication Qualifiers: Surgical complication system/body Area: musculoskeletal system Surgical complication type: unspecified Procedure type: musculoskeletal Qualified Code(s) : M96.89 - Other intraoperative and postprocedural complications and disorders of the musculoskeletal system - Discharge Dispostion Disposition: TRANSFER ACUTE CARE/OTHER HOSP Condition at time of disposition: Stable - Referrals Referrals: Keyana Pike MD [Staff Physician] - - Patient Instructions - Post Discharge Activity
[2018-09-22 20:03] VITALS: TEMP 98
--- NOTE | 2018-09-23 13:36 | EKG ---
Test Reason : Blood Pressure : / mmHG Vent. Rate : 097 BPM Atrial Rate : 097 BPM P-R Int : 146 ms QRS Dur : 082 ms QT Int : 374 ms P-R-T Axes : 060 011 028 degrees QTc Int : 474 ms NORMAL SINUS RHYTHM CANNOT RULE OUT ANTERIOR INFARCT , AGE UNDETERMINED NONSPECIFIC ST ABNORMALITY ABNORMAL ECG WHEN COMPARED WITH ECG OF 30-MAR-2018 21:49, NONSPECIFIC T WAVE ABNORMALITY NOW EVIDENT IN LATERAL LEADS Confirmed by CHERRIE GARCIAS MD ([id number]) on 09/23/2018 1:36:05 PM Referred By: Confirmed By:CHERRIE GARCIAS MD
== END 2018-09-22 20:09 | disposition short-term general hospital (02) ==
LOC: JER 13:46
PROC: 3E0337Z Introduction of Electrolytic and Water Balance Substance into Peripheral Vein, Percutaneous Approach (ICD-10-PCS; principal; 2018-09-22)
PROC: 3E033NZ Introduction of Analgesics, Hypnotics, Sedatives into Peripheral Vein, Percutaneous Approach (ICD-10-PCS; 2018-09-22)
DX: M96.830 Postprocedural hemorrhage of a musculoskeletal structure following a musculoskeletal system procedure (principal); M54.9 Dorsalgia, unspecified; E11.9 Type 2 diabetes mellitus without complications; Z79.4 Long term (current) use of insulin
CPT/HCPCS: 36415; 71275-TC; 72131-TC; 80053; 81003; 82550; 84484; 84702; 84703; 85025; 85610; 85730; 87086; 93005; 93010; 99284-25; J7030